=== PATIENT | female | born 1935 | race Caucasian/White ===

== ENCOUNTER 2017-12-23 07:10 | Day surgery (SDC) | payer MEDICARE, OTHER ==
[~2017-12-23 07:10] MED LIST: Acetaminophen TAB* 325 MG PO PRN; Buffered Lidocaine 0.9% SYRIN* 5 ML/SYR SYRINGE INTRADERM ONE
[2017-12-23] MEDS ORDERED: acetaZOLAMIDE TAB* 250 MG ONE (09:08)
[2017-12-23] MEDS ORDERED: Ketorolac 0.5% OPHTH (NF) 0.5 % 5 ML BTL ONE (09:08)
[2017-12-23] MEDS ORDERED: Lidocaine 1% MPF* 2 ML VIAL ONE (09:08)
[2017-12-23] MEDS ORDERED: Proparacaine 0.5% OPHTH.SOL* 15 ML BTL ONE (09:08)
[2017-12-23] MEDS ORDERED: Povidone Iodine 5% OPTH* 30 ML BTL ONE (09:08)
[2017-12-23] MEDS ORDERED: Cyclopentolate 1% OPTH.SOL* 2 ML BTL ONE (09:08)
[2017-12-23] MEDS ORDERED: Neomycin/Polymy/Dex OPTH.SUSP* MAXITROL 0.1% 5 ML ONE (09:08)
[2017-12-23] MEDS ORDERED: Lidocaine 2% EPI 1:200000 MPF*10-20 ML VIAL ONE (09:08)
[2017-12-23] MEDS ORDERED: Phenylephrine 2.5% OPTH.SOL* 2 ML BTL ONE (09:08)
[2017-12-23] MEDS ORDERED: Midazolam* 1 MG/ML 2 ML VIAL (2 MG) ONE (09:26)
[2017-12-23] MEDS ORDERED: fentaNYL* 50 MCG/ML 2 ML VIAL (100 MCG VIAL) ONE (10:00)
[2017-12-23 11:10] VITALS: BP 120/52
--- NOTE | 2017-12-23 22:11 | OP ---
DATE OF OPERATION: 12/23/17 - [facility] DATE OF : 35 SURGEON: Joe Hanks M.D. PREOPERATIVE DIAGNOSIS: Cataract, right eye. POSTOPERATIVE DIAGNOSIS: Cataract, right eye. OPERATIVE PROCEDURE: Extracapsular cataract extraction with intraocular lens implant intraocular lens implant right eye. DESCRIPTION OF PROCEDURE: The patient was brought to the operating room after being given 1/2% Alcaine with epinephrine drops in the preoperative area. The eye was prepped and draped in the usual sterile fashion. Sterile drape and eyelid speculum were placed. Again, topical 1/2% Alcaine with epinephrine was given. A paracentesis incision was made at the 9 o'clock position with the No.75 blade. Clear cornea incision 2.2 x 2.2-mm was created at the 12 o'clock position starting at the anterior limbus using the 2.2-mm keratome. The anterior chamber was irrigated with 0.4 mL of 1% non-preservative intracameral lidocaine and filled with DisCoVisc. A capsulorrhexis was completed using the cystotome and the Utrata forceps. Hydrodissection was performed with balanced salt solution. The lens nucleus was removed with the Phacoemulsification handpiece without incident. Cortex was removed with the irrigation-aspiration handpiece. The capsular bag was re-inflated using DisCoVisc and an [id number] 19.5 Implant was inserted with the shooter. The irrigation-aspiration handpiece was used to remove all residual DisCoVisc. The eye was refilled with balanced salt solution and the wound checked and found to be watertight. Topical Maxitrol drops were given. [id number]/[facility] #: [id number] [facility]
== END 2017-12-23 10:32 | disposition home or self-care (01) ==
LOC: OREAST 07:10
PROVIDERS: ATTEND Specialist
DX: H25.811 Combined forms of age-related cataract, right eye (principal); Z86.711 Personal history of pulmonary embolism; Z79.01 Long term (current) use of anticoagulants; J44.9 Chronic obstructive pulmonary disease, unspecified; J30.2 Other seasonal allergic rhinitis; I10 Essential (primary) hypertension; E78.5 Hyperlipidemia, unspecified; R01.1 Cardiac murmur, unspecified; I69.398 Other sequelae of cerebral infarction
CPT/HCPCS: A9270-GY; J2250; J3010; V2632

== ENCOUNTER 2018-01-13 07:46 | Day surgery (SDC) | payer MEDICARE, OTHER ==
[2018-01-13] MEDS ORDERED: Phenylephrine 2.5% OPTH.SOL* 2 ML BTL ONE (08:03)
[2018-01-13] MEDS ORDERED: Cyclopentolate 1% OPTH.SOL* 2 ML BTL ONE (08:03)
[2018-01-13] MEDS ORDERED: Lidocaine 2% EPI 1:200000 MPF*10-20 ML VIAL ONE (08:03)
[2018-01-13] MEDS ORDERED: Ketorolac 0.5% OPHTH (NF) 0.5 % 5 ML BTL ONE (08:03)
[2018-01-13] MEDS ORDERED: acetaZOLAMIDE TAB* 250 MG ONE (08:03)
[2018-01-13] MEDS ORDERED: Neomycin/Polymy/Dex OPTH.SUSP* MAXITROL 0.1% 5 ML ONE (08:03)
[2018-01-13] MEDS ORDERED: Povidone Iodine 5% OPTH* 30 ML BTL ONE (08:03)
[2018-01-13] MEDS ORDERED: Lidocaine 1%* 5 ML VIAL ONE (08:03)
[2018-01-13] MEDS ORDERED: Proparacaine 0.5% OPHTH.SOL* 15 ML BTL ONE (08:03)
[2018-01-13] MEDS ORDERED: Midazolam* 1 MG/ML 2 ML VIAL (2 MG) ONE (10:46)
[2018-01-13 11:24] VITALS: BP 128/58
--- NOTE | 2018-01-14 08:27 | OP ---
DATE OF OPERATION: 01/13/18 - [facility] DATE OF : 35 SURGEON: Joe Hanks M.D. PREOPERATIVE DIAGNOSIS: Cataract, left eye. POSTOPERATIVE DIAGNOSIS: Cataract, left eye. OPERATIVE PROCEDURE: Extracapsular cataract extraction with intraocular lens implant, left eye. DESCRIPTION OF PROCEDURE: The patient was brought to the operating room after being given 1/2% Alcaine with epinephrine drops in the preoperative area. The eye was prepped and draped in the usual sterile fashion. Sterile drape and eyelid speculum were placed. Again, topical 1/2% Alcaine with epinephrine was given. A paracentesis incision was made at the 3 o'clock position with the No.75 blade. Clear cornea incision 2.2 x 2.2-mm was created at the 6 o'clock position starting at the anterior limbus using the 2.2-mm keratome. The anterior chamber was irrigated with 0.4 mL of 1% non-preservative intracameral lidocaine and filled with DisCoVisc. A capsulorrhexis was completed using the cystotome and the Utrata forceps. Hydrodissection was performed with balanced salt solution. The lens nucleus was removed with the Phacoemulsification handpiece without incident. Cortex was removed with the irrigation-aspiration handpiece. The capsular bag was re-inflated using DisCoVisc and an [id number] implant was inserted with the shooter. The irrigation-aspiration handpiece was used to remove all residual DisCoVisc. The eye was refilled with balanced salt solution and the wound checked and found to be watertight. Topical Maxitrol drops were given. [id number]/[facility] #: [id number] [facility]
== END 2018-01-13 11:39 | disposition home or self-care (01) ==
LOC: OREAST 07:46
PROVIDERS: ATTEND Specialist
DX: H25.812 Combined forms of age-related cataract, left eye (principal); E03.9 Hypothyroidism, unspecified; Z79.01 Long term (current) use of anticoagulants; I10 Essential (primary) hypertension; E78.2 Mixed hyperlipidemia; Z86.711 Personal history of pulmonary embolism; J44.9 Chronic obstructive pulmonary disease, unspecified; K21.9 Gastro-esophageal reflux disease without esophagitis
CPT/HCPCS: A9270-GY; J2250; V2632

== ENCOUNTER 2019-06-08 07:57 | Emergency (ER) | payer MEDICARE, OTHER ==
[2019-06-08] MEDS ORDERED: methylPREDNISolone 125 MG* 2 ML VIAL IV ONE (08:06)
[2019-06-08] MEDS ORDERED: Albuterol 2.5 MG/3 ML NEB.SOL* (0.083%) INH ONE (08:07)
--- NOTE | 2019-06-08 08:14 | ED ---
Respiratory - HPI Summary HPI Summary: Pt is an 83 y/o F presenting to the ED brought in by EMS for a respiratory complaint. Per EMS, the pt has had a scratchy throat for the past week or so, and woke up this morning with increased difficulty breathing. She has hx of COPD , and was given a Duoneb in the ambulance that helped some of the phlegm come up. Pt reports a chest cold for the past week or so, characterized by a productive cough with white/yellow phlegm. She woke up this morning shaking and short of breath. She denies fever, pain, vomiting, diarrhea, or nasal discharge. 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 - History of Current Complaint Chief Complaint: EDShortnessOfBreath Stated Complaint: DIFFICULTY BREATHING PER EMS Time Seen by Provider: 06/08/19 07:58 Hx Obtained From: Patient, EMS Onset/Duration: Gradual Onset, Lasting Days, Still Present Timing: Constant Initial Severity: Moderate Pain Intensity: 0 Character: Wheezing, Cough (Productive), Dyspnea at Rest Sputum Amount: Scant Sputum Color: White, Yellow Aggravating Factor(s): Nothing Alleviating Factor(s): Nothing Associated Signs and Symptoms: SOB, Chills - Allergy/Home Medications Allergies/Adverse Reactions: Allergies Allergy/AdvReac Type Severity Reaction Status Date / Time amoxicillin Allergy Severe Difficulty Verified 01/13/18 08:26 Breathing/Wheezing beclomethasone [From Qvar] Allergy Severe breathing Verified 01/13/18 08:26 problems budesonide [From Symbicort] Allergy Severe tight Verified 01/13/18 08:26 chest, difficulty breathing calcium Allergy Severe kidney Verified 01/13/18 08:26 stones clarithromycin [From Biaxin] Allergy Severe tachy HR, Verified 01/13/18 08:26 chest felt "full" clavulanic acid Allergy Severe Difficulty Verified 01/13/18 08:26 [From Augmentin] Breathing/Wheezing doxycycline Allergy Severe Difficulty Verified 01/13/18 08:26 Breathing/Wheezing erythromycin base Allergy Severe tachy HR, Verified 01/13/18 08:26 chest felt "full" esomeprazole [From Nexium] Allergy Severe legs Verified 01/13/18 08:26 swell, sores in mouth fluticasone furoate Allergy Severe lips/tongue Verified 01/13/18 08:26 [From Breo Ellipta] swelling fluvastatin [From Lescol] Allergy Severe lips/tongue Verified 01/13/18 08:26 swelling formoterol [From Symbicort] Allergy Severe tight Verified 01/13/18 08:26 chest, difficulty breathing ipratropium Allergy Severe Difficulty Verified 01/13/18 08:26 Breathing levofloxacin Allergy Severe Difficulty Verified 01/13/18 08:26 Breathing/Wheezing levothyroxine Allergy Severe chest Verified 01/13/18 08:26 tight , insomia metoprolol Allergy Severe breathing Verified 01/13/18 08:26 problems mometasone furoate Allergy Severe body aches Verified 01/13/18 08:26 [From Asmanex Twisthaler] montelukast [From Singulair] Allergy Severe lips/tongue Verified 01/13/18 08:26 swelling mupirocin Allergy Severe breathing Verified 01/13/18 08:26 problems niacin Allergy Severe red all Verified 01/13/18 08:26 over body, felt like on "fire" olodaterol Allergy Severe swelling Verified 01/13/18 08:26 [From Stiolto Respimat] lips and tongue spironolactone Allergy Severe swelling Verified 01/13/18 08:26 lips/tongue, throat felt "full" sucralfate Allergy Severe difficulty Verified 01/13/18 08:26 breathing, dry mouth, nausea sulfamethoxazole Allergy Severe tachy HR, Verified 01/13/18 08:26 [From Bactrim] chest felt "full" tiotropium Allergy Severe swelling Verified 01/13/18 08:26 [From Stiolto Respimat] lips and tongue trimethoprim [From Bactrim] Allergy Severe tachy HR, Verified 01/13/18 08:26 chest felt "full" umeclidinium Allergy Severe increased Verified 01/13/18 08:26 [From Incruse Ellipta] coughing, tight chest vilanterol Allergy Severe lips/tongue Verified 01/13/18 08:26 [From Breo Ellipta] swelling atorvastatin [From Lipitor] Allergy Intermediate Muscle Ache Verified 01/13/18 08:26 blinepanide Allergy Severe dizzy, Uncoded 01/13/18 08:26 sick to stomach PMH/Surg Hx/FS Hx/Imm Hx Previously Healthy: Yes Endocrine/Hematology History: Reports: Hx Thyroid Disease Cardiovascular History: Reports: Hx Hypertension - controlled with meds, Hx Rheumatic Fever - as a child, Hx Valvular Heart Disease, Other Cardiovascular Problems/Disorders - leaking heart valve Respiratory History: Reports: Hx Chronic Obstructive Pulmonary Disease (COPD), Hx Pulmonary Embolism - x2, 2004, Hx Sleep Apnea GI History: Reports: Hx Gastroesophageal Reflux Disease, Hx Hiatal Hernia History: Reports: Hx Kidney Stones, Other Problems/Disorders - nephrolithiasis Musculoskeletal History: Reports: Hx Arthritis - osteoporosis, Hx Bursitis - shoulders r Sensory History: Reports: Hx Cataracts - both, Hx Contacts or Glasses - glasses Denies: Hx Hearing Aid Opthamlomology History: Reports: Hx Cataracts - both, Hx Contacts or Glasses - glasses Psychiatric History: Reports: Hx Anxiety - Cancer History Hx Chemotherapy: No - Surgical History Surgery Procedure, Year, and Place: cholcystectomy. hysterectomy- took out ovaries. left total knee replacement [facility] 2009. left breast biopsy. tonsillectomy Hx Anesthesia Reactions: No Infectious Disease History: No Infectious Disease History: Denies: Traveled Outside the [place] in Last 30 Days - Family History Known Family History: Negative: Diabetes - Social History Alcohol Use: Occasionally Hx Substance Use: No Substance Use Type: Reports: None Hx Tobacco Use: No Smoking Status (MU): Never Smoked Tobacco Review of Systems Negative: Fever Negative: Nasal Discharge Positive: Shortness Of Breath, Cough Negative: Vomiting, Diarrhea, Nausea Negative: Myalgia All Other Systems Reviewed And Are Negative: Yes Physical Exam - Summary Physical Exam Summary: Constitutional: Well-developed, Well-nourished, Alert. (-) Distressed Skin: Warm, Dry HENT: Normocephalic; Atraumatic Eyes: Conjunctiva normal Neck: Musculoskeletal ROM normal neck. (-) JVD, (-) Stridor, (-) Tracheal deviation Cardio: Rhythm regular, rate normal, Heart sounds normal; Intact distal pulses; Radial pulses are 2+ and symmetric. (-) Murmur Pulmonary/Chest wall: Effort normal. Bilateral expiratory wheezing. (-) Respiratory distress, (-) Rales Abd: Soft, (-) tenderness, (-) Distension, (-) Guarding, (-) Rebound Musculoskeletal: (-) Edema Lymph: (-) Cervical adenopathy Neuro: Alert, Oriented x3 Psych: Mood and affect Normal Triage Information Reviewed: Yes Vital Signs On Initial Exam: Initial Vitals Temp Pulse Resp BP Pulse Ox 98.7 F 87 18 117/72 95 06/08/19 08:02 06/08/19 08:02 06/08/19 08:02 06/08/19 08:02 06/08/19 08:02 Vital Signs Reviewed: Yes Procedures - Sedation Patient Received Moderate/Deep Sedation with Procedure: No Diagnostics - Vital Signs Vital Signs Temp Pulse Resp BP Pulse Ox 06/08/19 08:02 98.7 F 87 18 117/72 95 - Laboratory Result Diagrams: 06/08/19 08:14 06/08/19 08:14 Lab Statement: Any lab studies that have been ordered have been reviewed, and results considered in the medical decision making process. - Radiology CXR Radiology Interpretation Completed By: Radiologist Summary of Radiographic Findings: HYPERINFLATION, CONSISTENT WITH COPD. NO ACTIVE CARDIOPULMONARY DISEASE. ED physician has reviewed this report. - EKG 0926 Cardiac Rate: NL - 86bpm EKG Rhythm: Sinus Rhythm ST Segment: Normal Ectopy: None Summary of EKG Findings: EKG at 0926 shows NSR at 86bpm with no STEMI. ED physician has reviewed and interpreted this report. Disposition - Course Course Of Treatment: Patient is here with a mild COPD exacerbation. Patient had wheezing upon arrival but was talking in full sentences and was not in respiratory distress. Patient is given an albuterol treatment with improvement in her symptoms. Patient was offered a second one but declined. Patient given steroids. Patient had blood performed which was grossly unremarkable. A chest pressure which showed no acute abnormality. Patient states he discharged on azithromycin but pharmacist called stating she was brought to macrolides and was switched to doxycycline which she's had in 2018 with no adverse reaction. Patient is also discharged with prednisone. Patient is also discharged with instructions to follow-up with her PCP to ask about her 3 albuterol prescriptions and no daily inhaler. - Diagnoses Provider Diagnoses: COPD exacerbation Discharge ED - Sign-Out/Discharge Documenting (check all that apply): Patient Departure - Discharge Plan Condition: Stable Disposition: HOME Patient Education Materials: COPD (Chronic Obstructive Pulmonary Disease) (ED) Referrals: Juan Salvador MD [Primary Care Provider] - Additional Instructions: Please follow up with your primary care provider within the next 1-3 days to ask about your three different Albuterol medications, and to discuss the possibility of a daily inhaler. Return to the emergency department with any new or worsening symptoms, including worsening shortness of breath, fever, or chills. - Billing Disposition and Condition Condition: STABLE Disposition: Home - Attestation Statements Document Initiated by Stefani: Yes Documenting Scribe: Cheryl Brown Provider For Whom Stefani is Documenting (Include Credential): Brent Rdz MD. Scribe Attestation: Cheryl Perez, scribed for Brent Rdz MD. on 06/08/19 at 1204. Scribe Documentation Reviewed: Yes Provider Attestation: The documentation as recorded by the Cheryl mosher accurately reflects the service I personally performed and the decisions made by , Brent Rdz MD. Status of Scribe Document: Viewed
[2019-06-08 08:22] LABS: ABS Basophils 0.1 10^3/ul (0-0.2); ABS Eosinophils 0.1 10^3/ul (0-0.6); ABS Lymphocytes 1.4 10^3/ul (1.0-4.8); ABS Monocytes 0.5 10^3/ul (0-0.8); ABS Neutrophils 2.8 10^3/ul (1.5-7.7); Eosinophil % 1.9 %; Hematocrit 43 % (35-47); Hemoglobin 14.3 g/dL (12.0-16.0); Mean Corpuscular HGB Conc 33 g/dL (31-36); Mean Corpuscular Hemoglobin 29 pg (27-31); Mean Corpuscular Volume 87 fL (80-97); Nucleated Red Blood Cells % 0.2; Platelet Count 260 10^3/uL (150-450); Red Blood Count 4.95 10^6 /uL (3.70-4.87); Red Cell Distribution Width 14 % (10-15); White Blood Count 4.9 10^3/uL (3.5-10.8)
[2019-06-08 08:35] LABS: INR 2.89 (0.82-1.09)
[2019-06-08 08:40] LABS: Albumin 3.8 g/dL (3.2-5.2); Albumin/Globulin Ratio 1.2 (1-3); BUN/Creatinine Ratio 19.1 (8-20); Calcium 9.2 mg/dL (8.6-10.3); EGFR African American 73.3 (>60); EGFR Non-African American 60.6 (>60); Globulin 3.1 g/dL (2-4); Potassium 3.5 mmol/L (3.5-5.0); Total Bilirubin 0.9 mg/dL (0.2-1.0); Total Protein 6.9 g/dL (6.4-8.9)
[2019-06-08 08:42] LABS: Troponin I 0.01 ng/mL (<0.04)
--- OUTSIDE RECORDS SUMMARY | 2019-06-08 08:51 | XMS REPORT | Continuity of Care Document ---
:1935 Author Organization [facility] Care Team Providers Name Role Phone MIK HENNESSY Primary Care Physician Allergies and Intolerances Code Code Allergy Type Reaction Severity Start End Status System Substance Date Date RXNorm Budesonide Drug allergy breat Moderate Active (disorder) 65056 RXNorm Levofloxacin Drug allergy chest Moderate Active (disorder) 1808 RXNorm Bumetanide Propensity to Dizziness Moderate Active adverse reactions to drug (disorder) 905629 RXNorm DuoNeb Drug allergy breathing Moderate Active (disorder) probems 640355 RXNorm Singulair Drug allergy lips swelling Moderate Active (disorder) 6401772 RXNorm Aerospan Drug allergy chest Moderate Active (disorder) tightness, shakes 6181221 RXNorm Stiolto Respimat Drug allergy lips & tongue Moderate Active (disorder) swelling 57833 RXNorm Sucralfate Drug allergy Difficulty Moderate Active (disorder) breathing 6918 RXNorm Metoprolol Drug allergy swelling, Moderate 09/13/ Active (disorder) breathing 1936 problems 7393 RXNorm Niacin Drug body on fire Moderate 09/13/ Active intolerence 1935 (disorder) 798919 RXNorm Lipitor Propensity to muscle achy Moderate 09/13/ Active adverse 1936 reactions to drug (disorder) 307909 RXNorm Nexium Drug allergy swelling, Moderate 09/13/ Active (disorder) sore mouth 1936 1895 RXNorm Calcium Propensity to develops Moderate 09/13/ Active adverse kidney stones 1936 reactions to drug (disorder) 3640 RXNorm Doxycycline Propensity to vomiting Moderate 09/13/ Active adverse 1936 reactions to drug (disorder) 896171 RXNorm Levaquin Propensity to cant sleep & Unknown 09/13/ Active adverse diarrhea 1936 reactions to drug (disorder) 3118337 RXNorm Breo Ellipta Drug allergy swelling, Moderate 09/13/ Active (disorder) breathing 1936 problems 20290502 RXNorm Lopid Drug allergy breathing Moderate 09/13/ Active (disorder) problems 193196387 RXNorm Pulmicort Propensity to gas & Mild 09/13/ Active Flexhaler adverse diarrhea 1936 reactions to drug (disorder) 1348 RXNorm Qvar Drug allergy breathing Moderate 09/13/ Active (disorder) problems 1936 24577 RXNorm Simvastatin Drug allergy breathing Unknown 09/13/ Active (disorder) problems 193 320292 RXNorm Symbicort Propensity to nervous & Mild 09/13/ Active adverse insomnia 1936 reactions to drug (disorder) 986410 RXNorm Zetia Drug allergy breathing Moderate 09/13/ Active (disorder) problems 1936 28220 RXNorm Mupirocin Drug allergy breathing Moderate 09/13/ Active (disorder) problems 193 95071 RXNorm Atorvastatin Drug allergy breathing Moderate 09/13/ Active (disorder) problems 1936 723 RXNorm Amoxicillin Drug allergy sob, n/v Moderate 09/13/ Active (disorder) 193 664309 RXNorm Augmentin Drug allergy unknown Moderate 09/13/ Active (disorder) 1936 9997 RXNorm Spironolactone Drug allergy angioedema Severe 09/13/ Active (disorder) 1936 215040 RXNorm Asmanex Propensity to muscle aches Mild 09/13/ Active Twisthaler adverse 1936 reactions to drug (disorder) 7213 RXNorm Ipratropium Drug allergy angioedema Severe 09/13/ Active (disorder) 1936 4053 RXNorm Erythromycin Propensity to palpitations Moderate 03/05/ Active Base adverse 2010 reactions to drug (disorder) 295784 RXNorm Bactrim Drug allergy SHORTNESS OF Moderate 03/05/ Active (disorder) BREATH 2009729 RXNorm Biaxin Drug allergy SHORTNESS OF Moderate 03/05/ Active (disorder) BREATH 2009 Medications RxNorm Medication Dose Route Instructions Start End Status Date Date 642431 200 ACTUAT 1 puff inhalation inhaled every 4 Active Levalbuterol 0.045 hours as needed. MG/ACTUAT Metered Dose Inhaler 161 Acetaminophen 500 mg oral orally every 4 Active hours as needed. 435 Albuterol 2 puff inhalation inhaled every 6 Active hours as needed. 435 Albuterol 2.5 mg inhalation inhaled 4 times Active per day as needed. 300633 Amlodipine 10 MG 10 mg oral orally daily Active Oral Tablet 1191 Aspirin 81 mg oral orally daily Active (HOLD UNTIL FOLLOW UP WITH PRIMARY CARE PHYSICIAN DUE TO CONCURRENT USE OF COUMADIN AND RECENT GI BLEED) 2418 Cholecalciferol 2000 unit oral orally every day Active 4603 Furosemide 60 mg oral orally daily Active 31764 levothyroxine 88 mcg oral orally daily Active Lorazepam 0.5 MG 0.5 mg oral orally 2 times Active Oral Tablet per day as needed. (for anxiety and sleep,mdd 2) 816345 Losartan Potassium 100 mg oral orally daily Active 100 MG Oral Tablet 067675 Nystatin 100 UNT/MG 1 applic topical topically 2 Active Topical Powder times per day Midnight-3 Fatty Acids 1000 mg oral orally every day Active 7646 Omeprazole 20 mg oral orally daily Active 19800829 Potassium Chloride 20 mEq oral orally 2 times Active 20 MEQ Extended per day Release Oral Tablet 975843 Rosuvastatin 5 mg oral orally daily Active calcium 5 MG Oral Tablet 644127 Warfarin Sodium 2.5 2.5 mg oral orally 3 times Active MG Oral Tablet per week (Thu, , Thu, Thu, and Thu) 916629 Warfarin Sodium 5 5 mg oral orally 2 times Active MG Oral Tablet per week (Thu and ) Medications At Time Of Discharge RxNorm Medication Dose Route Instructions Start End Status Date Date 542915 200 ACTUAT 1 puff inhalation inhaled every 4 Active Levalbuterol 0.045 hours as needed. MG/ACTUAT Metered Dose Inhaler 161 Acetaminophen 500 mg oral orally every 4 Active hours as needed. 435 Albuterol 2 puff inhalation inhaled every 6 Active hours as needed. 435 Albuterol 2.5 mg inhalation inhaled 4 times Active per day as needed. 069450 Amlodipine 10 MG 10 mg oral orally daily Active Oral Tablet 1191 Aspirin 81 mg oral orally daily Active (HOLD UNTIL FOLLOW UP WITH PRIMARY CARE PHYSICIAN DUE TO CONCURRENT USE OF COUMADIN AND RECENT GI BLEED) 2418 Cholecalciferol 2000 unit oral orally every day Active 4603 Furosemide 60 mg oral orally daily Active 58158 levothyroxine 88 mcg oral orally daily Active Lorazepam 0.5 MG 0.5 mg oral orally 2 times Active Oral Tablet per day as needed. (for anxiety and sleep,mdd 2) 680312 Losartan Potassium 100 mg oral orally daily Active 100 MG Oral Tablet 207858 Nystatin 100 UNT/MG 1 applic topical topically 2 Active Topical Powder times per day Midnight-3 Fatty Acids 1000 mg oral orally every day Active 7646 Omeprazole 20 mg oral orally daily Active 795732 Potassium Chloride 20 mEq oral orally 2 times Active 20 MEQ Extended per day Release Oral Tablet 541119 Rosuvastatin 5 mg oral orally daily Active calcium 5 MG Oral Tablet 697842 Warfarin Sodium 2.5 2.5 mg oral orally 3 times Active MG Oral Tablet per week (Sun, Tu, Wed, Thu, and Thu) 056660 Warfarin Sodium 5 5 mg oral orally 2 times Active MG Oral Tablet per week (Thu and ) Problems Code Code System Problem Name Start Date End Date Status 641061035 SNOMED-CT Acute posthemorrhagic anemia 10/2018 Active 457342243 SNOMED-CT Cerebrovascular accident 02/19/2014 U Active 13386745 SNOMED-CT Abdominal discomfort 06/06/2013 U Active 128916185 SNOMED-CT Cerebrovascular accident 10/21/2012 Active 14319538 SNOMED-CT Pulmonary embolism 2009 Active 483048720 SNOMED-CT Diverticulitis U Active 97488068 SNOMED-CT Chronic obstructive lung disease U Active 902828456 SNOMED-CT Asthma U Active 54382552 SNOMED-CT Pulmonary emphysema U Active 303562067 SNOMED-CT Backache U Active 34983889 SNOMED-CT Hypokalemia U U Active 72445283 SNOMED-CT Chronic obstructive lung disease U U Active 25745558 SNOMED-CT Pulmonary embolism U U Active 67335513 SNOMED-CT Hyperlipidemia U U Active 07371573 SNOMED-CT Hypertensive disorder U U Active 495653670 SNOMED-CT Gastroesophageal reflux disease U Active 52708108 SNOMED-CT Hiatal hernia U Active 68914822 SNOMED-CT Intervertebral disc prolapse U Active Procedures Code Code System Procedure Date 517999060 SNOMED CT Tonsillectomy U 139070428 SNOMED CT Hysterectomy 01/[address] Biopsy of breast U 20458591 SNOMED CT Cholecystectomy U 03009319 SNOMED CT Revision of total knee arthroplasty, all components 2009 Results No data in the system Social History Code Code System Social History Observation Description Dates Observed 344961236 SNOMED CT Current Smoking Status Never smoker UNK AdministrativeGender Sex Assigned At Unknown Vital Signs Code Code System Vitals Value Date 8310-5 LOINC Body Temperature 97.7 [degF] 05/22/2019 8865-8 LOINC Pulse Rate 60 {beats}/min 05/22/2019 9279-1 LOINC Respiratory Rate 20 /min 05/22/2019 27179-1 LOINC O2% BldC Oximetry 95 % 05/22/2019 8480-6 LOINC BP Systolic 143 mm[Hg] 05/22/2019 8462-4 LOINC BP Diastolic 70 mm[Hg] 05/22/2019 8302-2 LOINC Height 60 [in_i] 05/22/2019 89286-2 LOINC Weight 75 kg 05/22/2019 3140-1 LOINC Body surface area Derived from formula 1.72 m2 05/22/2019 60148-4 LOINC BMI (Body Mass Index) 32.4 kg/m2 05/22/2019 Goals Section No data in the system Health Concerns [facility] Diagnosis Date Code Code System Diagnosis Status B35.6 ICD10 DE[facility]INI CONTI Active Advance Directives *RHIO - CONSENT IS YES Directive Type Effective Date 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 Supporting Document Name Address Phone No Directive Type 12/16/2015 2:45:54 Not Specified Not Specified Not Specified None No specified [facility] Directive Type Effective Date 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 Supporting Document Name Address Phone No Directive 11/01/2018 Not Not Not hanna Snell Yes Type 6:00:00 AM Specified Specified Specified [phone] specified Encounters Encounter Diagnosis Location Date [facility] 05/22/2019 Family History Relationship: Father () Health Problem Age At Onset Notes [place] (Myocardial infarction) (Myocardial infarction) Relationship: Mother ( ) Health Problem Age At Onset Notes MO (Myocardial infarction) (Myocardial infarction) Relationship: Sister ( ) Health Problem Age At Onset Notes Diverticulitis Functional Status No data in the system Immunizations Vaccine Code Code System Vaccine Name Date Status 109 CVX pneumococcal vaccine, NOS 02/22/2008 Completed 109 CVX pneumococcal vaccine, NOS 05/16/2015 Completed 112 CVX tetanus toxoid, NOS 02/06/2004 Completed Medical Equipment Implants Implanted Date Implant Site ABHISHEK 08/24/2009 total knee arthroplasty left knee Mental Status No data in the system Assessment and Plan Assessments No data in the systemPlan Of Treatment No data in the systemPending Tests No data in the system Hospital Discharge Instructions No data in the system Reason for Visit Reason for Visit Rash
--- OUTSIDE RECORDS SUMMARY | 2019-06-08 08:51 | XMS REPORT | Continuity of Care Document ---
:1935 Author Organization [facility] Care Team Providers Name Role Phone XUAN POSADAS Admitting Physician XUAN POSADAS Attending Physician MIK HENNESSY Primary Care Physician Allergies and Intolerances Code Code Allergy Type Reaction Severity Start End Status System Substance Date Date RXNorm Budesonide Drug allergy breat Moderate Active (disorder) 81345 RXNorm Levofloxacin Drug allergy chest Moderate Active (disorder) 1808 RXNorm Bumetanide Propensity to Dizziness Moderate Active adverse reactions to drug (disorder) 812082 RXNorm DuoNeb Drug allergy breathing Moderate Active (disorder) probems 093779 RXNorm Singulair Drug allergy lips swelling Moderate Active (disorder) 0855865 RXNorm Aerospan Drug allergy chest Moderate Active (disorder) tightness, shakes 8647024 RXNorm Stiolto Respimat Drug allergy lips & tongue Moderate Active (disorder) swelling 82765 RXNorm Sucralfate Drug allergy Difficulty Moderate Active (disorder) breathing 6918 RXNorm Metoprolol Drug allergy swelling, Moderate 09/13/ Active (disorder) breathing 1936 problems 7393 RXNorm Niacin Drug body on fire Moderate 09/13/ Active intolerence 1935 (disorder) 958474 RXNorm Lipitor Propensity to muscle achy Moderate 09/13/ Active adverse 1936 reactions to drug (disorder) 442053 RXNorm Nexium Drug allergy swelling, Moderate 09/13/ Active (disorder) sore mouth 1935 189 RXNorm Calcium Propensity to develops Moderate 09/13/ Active adverse kidney stones 1936 reactions to drug (disorder) 3640 RXNorm Doxycycline Propensity to vomiting Moderate 09/13/ Active adverse 1936 reactions to drug (disorder) 451220 RXNorm Levaquin Propensity to cant sleep & Unknown 09/13/ Active adverse diarrhea 1936 reactions to drug (disorder) 9305386 RXNorm Breo Ellipta Drug allergy swelling, Moderate 09/13/ Active (disorder) breathing 1936 problems 979040 RXNorm Lopid Drug allergy breathing Moderate 09/13/ Active (disorder) problems [id number] RXNorm Pulmicort Propensity to gas & Mild 09/13/ Active Flexhaler adverse diarrhea 1936 reactions to drug (disorder) 1348 RXNorm Qvar Drug allergy breathing Moderate 09/13/ Active (disorder) problems 193 77774 RXNorm Simvastatin Drug allergy breathing Unknown 09/13/ Active (disorder) problems 193 902369 RXNorm Symbicort Propensity to nervous & Mild 09/13/ Active adverse insomnia 1936 reactions to drug (disorder) 645454 RXNorm Zetia Drug allergy breathing Moderate 09/13/ Active (disorder) problems 193 39089 RXNorm Mupirocin Drug allergy breathing Moderate 09/13/ Active (disorder) problems 193 68850 RXNorm Atorvastatin Drug allergy breathing Moderate 09/13/ Active (disorder) problems 193 723 RXNorm Amoxicillin Drug allergy sob, n/v Moderate 09/13/ Active (disorder) 193 215373 RXNorm Augmentin Drug allergy unknown Moderate 09/13/ Active (disorder) 193 9997 RXNorm Spironolactone Drug allergy angioedema Severe 09/13/ Active (disorder) 193 927212 RXNorm Asmanex Propensity to muscle aches Mild 09/13/ Active Twisthaler adverse 1936 reactions to drug (disorder) 7213 RXNorm Ipratropium Drug allergy angioedema Severe 09/13/ Active (disorder) 193 4053 RXNorm Erythromycin Propensity to palpitations Moderate 03/05/ Active Base adverse 2010 reactions to drug (disorder) 413007 RXNorm Bactrim Drug allergy SHORTNESS OF Moderate 03/05/ Active (disorder) BREATH 2009729 RXNorm Biaxin Drug allergy SHORTNESS OF Moderate 03/05/ Active (disorder) BREATH 2009 Medications RxNorm Medication Dose Route Instructions Start End Status Date Date 808512 200 ACTUAT 1 puff inhalation inhaled every 4 Active Levalbuterol 0.045 hours as MG/ACTUAT Metered needed. Dose Inhaler 161 Acetaminophen 500 mg oral orally every 4 Active hours as needed. 435 Albuterol 2 puff inhalation inhaled every 6 Active hours as needed. 435 Albuterol 2.5 mg inhalation inhaled 4 times Active per day as needed. 114069 Amlodipine 10 MG 10 mg oral orally daily Active Oral Tablet 1191 Aspirin 81 mg oral orally daily Active (HOLD UNTIL FOLLOW UP WITH PRIMARY CARE PHYSICIAN DUE TO CONCURRENT USE OF COUMADIN AND RECENT GI BLEED) 2418 Cholecalciferol 2000 unit oral orally every Active day 4603 Furosemide 60 mg oral orally daily Active 08848 levothyroxine 88 mcg oral orally daily Active Lorazepam 0.5 MG 0.5 mg oral orally 2 times Active Oral Tablet per day as needed. (for anxiety and sleep,mdd 2) 389347 Losartan Potassium 100 mg oral orally daily Active 100 MG Oral Tablet 547744 Nystatin 100 1 applic topical topically 2 Active UNT/MG Topical times per day Powder Ashton-3 Fatty 1000 mg oral orally every Active day 46 Omeprazole 20 mg oral orally daily Active 19800829 Potassium Chloride 20 mEq oral orally 2 times Active 20 MEQ Extended per day Release Oral Tablet 294083 Rosuvastatin 5 mg oral orally daily Active calcium 5 MG Oral Tablet 203273 Warfarin Sodium 2.5 mg oral orally 3 times Active 2.5 MG Oral Tablet per week (Sun, Tu, Wed, Fri, and Thu) 808131 Warfarin Sodium 5 5 mg oral orally 2 times Active MG Oral Tablet per week (Thu and ) 3626589 Fluticasone 2 spray intranasal intranasally Completed propionate 0.05 daily MG/ACTUAT Metered (administer Dose Nasal [place] into each nostril) Medications At Time Of Discharge RxNorm Medication Dose Route Instructions Start End Status Date Date 946073 200 ACTUAT 1 puff inhalation inhaled every 4 Active Levalbuterol 0.045 hours as needed. MG/ACTUAT Metered Dose Inhaler 161 Acetaminophen 500 mg oral orally every 4 Active hours as needed. 435 Albuterol 2 puff inhalation inhaled every 6 Active hours as needed. 435 Albuterol 2.5 mg inhalation inhaled 4 times Active per day as needed. 449876 Amlodipine 10 MG 10 mg oral orally daily Active Oral Tablet 1191 Aspirin 81 mg oral orally daily Active (HOLD UNTIL FOLLOW UP WITH PRIMARY CARE PHYSICIAN DUE TO CONCURRENT USE OF COUMADIN AND RECENT GI BLEED) 2418 Cholecalciferol 2000 unit oral orally every day Active 460 Furosemide 60 mg oral orally daily Active 35842 levothyroxine 88 mcg oral orally daily Active Lorazepam 0.5 MG 0.5 mg oral orally 2 times Active Oral Tablet per day as needed. (for anxiety and sleep,mdd 2) 011201 Losartan Potassium 100 mg oral orally daily Active 100 MG Oral Tablet 503565 Nystatin 100 UNT/MG 1 applic topical topically 2 Active Topical Powder times per day Ashton-3 Fatty Acids 1000 mg oral orally every day Active 7646 Omeprazole 20 mg oral orally daily Active 19800829 Potassium Chloride 20 mEq oral orally 2 times Active 20 MEQ Extended per day Release Oral Tablet 921239 Rosuvastatin 5 mg oral orally daily Active calcium 5 MG Oral Tablet 792461 Warfarin Sodium 2.5 2.5 mg oral orally 3 times Active MG Oral Tablet per week (Sun, , Thu, Thu, and Thu) 704098 Warfarin Sodium 5 5 mg oral orally 2 times Active MG Oral Tablet per week (Thu and ) Problems Code Code System Problem Name Start Date End Date Status 414441980 SNOMED-CT Acute posthemorrhagic anemia 10/2018 Active 344109094 SNOMED-CT Cerebrovascular accident 02/19/2014 U Active 34765930 SNOMED-CT Abdominal discomfort 06/06/2013 U Active 086334808 SNOMED-CT Cerebrovascular accident 10/21/2012 Active 81877601 SNOMED-CT Pulmonary embolism 2009 Active 155363377 SNOMED-CT Diverticulitis U Active 54939613 SNOMED-CT Chronic obstructive lung disease U Active 820073086 SNOMED-CT Asthma U Active 29094429 SNOMED-CT Pulmonary emphysema U Active 358811996 SNOMED-CT Backache U Active 70144634 SNOMED-CT Hypokalemia U U Active 48013898 SNOMED-CT Chronic obstructive lung disease U U Active 86279526 SNOMED-CT Pulmonary embolism U U Active 40232582 SNOMED-CT Hyperlipidemia U U Active 79489017 SNOMED-CT Hypertensive disorder U U Active 518388953 SNOMED-CT Gastroesophageal reflux disease U Active 21018433 SNOMED-CT Hiatal hernia U Active 01347009 SNOMED-CT Intervertebral disc prolapse U Active Procedures Code Code System Procedure Date 608937258 SNOMED CT Tonsillectomy U 003066448 SNOMED CT Hysterectomy 01/[address] Biopsy of breast U 29968494 SNOMED CT Cholecystectomy U 62278503 SNOMED CT Revision of total knee arthroplasty, all components 2009 Results Radiology Results Order: CHEST TWO VIEWSExam Completion Date: 04/19/2019 10:4704/19/2019 11:30 AM CHEST X-RAYS CLINICAL INFORMATION: SOB, right CP, hx COPD, on wafarin -- SHORTNESS OF BREATH COMPARISON: 2018. PROCEDURE: Frontal and lateral projections of thechest were obtained. FINDINGS: Pulmonary hyperinflation similar to previous. No mass, nodule or infiltrate. The cardiovascular silhouette is normal. 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 No pleural effusion or adenopathy. END OF IMPRESSION [facility] submits Radiology results to [facility] and [facility] then provides those same results to [facility]. All results are available to [facility] and [facility] provider portal users. [facility] DICOM images are available to the [facility] provider portalusers only. [facility] DICOM images are not available to the [facility] provider portal users. There is no current [facility] cross-[facility] functionality allowing images to be available through the [facility] connectivity. Interpreted By: Alvin Murillo Electronically signed By: Lauren Acuña M.D. Read By: LAUREN ACUÑA Date: 04/19/2019 11:51 Social History Code Code System Social History Observation Description Dates Observed 070345871 SNOMED CT Current Smoking Status Never smoker UNK AdministrativeGender Sex Assigned At Unknown Vital Signs Code Code System Vitals Value Date 8865-8 LOINC Pulse Rate 78 {beats}/min 04/19/2019 9279-1 LOINC Respiratory Rate 18 /min 04/19/2019 09330-6 INC O2% BldC Oximetry 95 % 04/19/2019 8480-6 LOINC BP Systolic 139 mm[Hg] 04/19/2019 8462-4 LOINC BP Diastolic 60 mm[Hg] 04/19/2019 8310-5 LOINC Body Temperature 98.4 [degF] 04/19/2019 8302-2 LOINC Height 55 [in_i] 04/19/2019 87949-4 LOINC Weight 70.9 kg 04/19/2019 3140-1 LOINC Body surface area Derived from formula 1.58 m2 04/19/2019 20334-2 [place] BMI (Body Mass Index) 36.6 kg/m2 04/19/2019 Goals Section No data in the system Health Concerns No data in the systemEncounter Diagnosis Date Code Code System Diagnosis Status F41.9 ICD10 ANXIETY DISORDER UNSPECIFIED Active Advance Directives *RHIO - CONSENT IS YES 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 Supporting Document Name Address Phone No Directive Type 12/16/2015 2:45:54 Not Specified Not Specified Not Specified None No specified [facility] [employer] 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 Supporting Document Name Address Phone No Directive 11/01/2018 Not Not Not hanna Snell Yes Type 6:00:00 AM Specified Specified Specified [phone] specified Encounters Encounter Diagnosis Location Date ANXIETY DISORDER UNSPECIFIED [facility] 04/19/2019 Family History Relationship: Father () Health Problem Age At Onset Notes AL (Myocardial infarction) (Myocardial infarction) Relationship: Mother ( ) Health Problem Age At Onset Notes AL (Myocardial infarction) (Myocardial infarction) Relationship: Sister ( ) Health Problem Age At Onset Notes Diverticulitis Functional Status Code Functional Condition Code System Date Status Independent adls SNOMED CT 04/19/2019 Active Appears well nourished/hydrated SNOMED CT 04/19/2019 Active Immunizations Vaccine Code Code System Vaccine Name Date Status 109 CVX pneumococcal vaccine, NOS 02/22/2008 Completed 109 CVX pneumococcal vaccine, NOS 05/16/2015 Completed 112 CVX tetanus toxoid, NOS 02/06/2004 Completed Medical Equipment Implants Implanted Date Implant Site [id number] 08/24/2009 total knee arthroplasty left knee Mental Status Code Cognitive Condition Code System Date Status Oriented x [address] 04/19/[address] 04/19/[address] 04/19/2019 Active Assessment and Plan Assessments No data in the systemPlan Of Treatment No data in the systemPending Tests No data in the system Hospital Discharge Instructions No data in the system Reason for Visit Reason for Visit Chest Pain
--- OUTSIDE RECORDS SUMMARY | 2019-06-08 08:51 | XMS REPORT | Continuity of Care Document ---
:1935 Author Organization [facility] Care Team Providers Name Role Phone LOLLY KHAN Admitting Physician LOLLY KHAN Attending Physician MIK HENNESSY Primary Care Physician Allergies and Intolerances Code Code Allergy Type Reaction Severity Start End Status System Substance Date Date RXNorm Budesonide Drug allergy breat Moderate Active (disorder) 48298 RXNorm Levofloxacin Drug allergy chest Moderate Active (disorder) 1808 RXNorm Bumetanide Propensity to Dizziness Moderate Active adverse reactions to drug (disorder) 211712 RXNorm DuoNeb Drug allergy breathing Moderate Active (disorder) probems 769490 RXNorm Singulair Drug allergy lips swelling Moderate Active (disorder) 3610829 RXNorm Aerospan Drug allergy chest Moderate Active (disorder) tightness, shakes 3209815 RXNorm Stiolto Respimat Drug allergy lips & tongue Moderate Active (disorder) swelling 64005 RXNorm Sucralfate Drug allergy Difficulty Moderate Active (disorder) breathing 6918 RXNorm Metoprolol Drug allergy swelling, Moderate 09/13/ Active (disorder) breathing 1936 problems 7393 RXNorm Niacin Drug body on fire Moderate 09/13/ Active intolerence 1935 (disorder) 697409 RXNorm Lipitor Propensity to muscle achy Moderate 09/13/ Active adverse 1936 reactions to drug (disorder) 121066 RXNorm Nexium Drug allergy swelling, Moderate 09/13/ Active (disorder) sore mouth 1935 189 RXNorm Calcium Propensity to develops Moderate 09/13/ Active adverse kidney stones 193 reactions to drug (disorder) 3640 RXNorm Doxycycline Propensity to vomiting Moderate 09/13/ Active adverse 1936 reactions to drug (disorder) 088179 RXNorm Levaquin Propensity to cant sleep & Unknown 09/13/ Active adverse diarrhea 1936 reactions to drug (disorder) 4172827 RXNorm Breo Ellipta Drug allergy swelling, Moderate 09/13/ Active (disorder) breathing 1936 problems 20290502 RXNorm Lopid Drug allergy breathing Moderate 09/13/ Active (disorder) problems [id number] RXNorm Pulmicort Propensity to gas & Mild 09/13/ Active Flexhaler adverse diarrhea 1936 reactions to drug (disorder) 1348 RXNorm Qvar Drug allergy breathing Moderate 09/13/ Active (disorder) problems 193 48875 RXNorm Simvastatin Drug allergy breathing Unknown 09/13/ Active (disorder) problems 193 097816 RXNorm Symbicort Propensity to nervous & Mild 09/13/ Active adverse insomnia 1936 reactions to drug (disorder) 079699 RXNorm Zetia Drug allergy breathing Moderate 09/13/ Active (disorder) problems 193 14667 RXNorm Mupirocin Drug allergy breathing Moderate 09/13/ Active (disorder) problems 193 73480 RXNorm Atorvastatin Drug allergy breathing Moderate 09/13/ Active (disorder) problems 193 723 RXNorm Amoxicillin Drug allergy sob, n/v Moderate 09/13/ Active (disorder) 193 670175 RXNorm Augmentin Drug allergy unknown Moderate 09/13/ Active (disorder) 193 9997 RXNorm Spironolactone Drug allergy angioedema Severe 09/13/ Active (disorder) 193 633766 RXNorm Asmanex Propensity to muscle aches Mild 09/13/ Active Twisthaler adverse 1936 reactions to drug (disorder) 7213 RXNorm Ipratropium Drug allergy angioedema Severe 09/13/ Active (disorder) 193 4053 RXNorm Erythromycin Propensity to palpitations Moderate 03/05/ Active Base adverse 2010 reactions to drug (disorder) 975086 RXNorm Bactrim Drug allergy SHORTNESS OF Moderate 03/05/ Active (disorder) BREATH 2009729 RXNorm Biaxin Drug allergy SHORTNESS OF Moderate 03/05/ Active (disorder) BREATH 2009 Medications RxNorm Medication Dose Route Instructions Start End Status Date Date 902312 200 ACTUAT 1 puff inhalation inhaled every 4 Active Levalbuterol 0.045 hours as needed. MG/ACTUAT Metered Dose Inhaler 161 Acetaminophen 500 mg oral orally every 4 Active hours as needed. 435 Albuterol 2 puff inhalation inhaled every 6 Active hours as needed. 435 Albuterol 2.5 mg inhalation inhaled 4 times Active per day as needed. 202998 Amlodipine 10 MG 10 mg oral orally daily Active Oral Tablet 1191 Aspirin 81 mg oral orally daily Active (HOLD UNTIL FOLLOW UP WITH PRIMARY CARE PHYSICIAN DUE TO CONCURRENT USE OF COUMADIN AND RECENT GI BLEED) 2418 Cholecalciferol 2000 unit oral orally every day Active 4603 Furosemide 60 mg oral orally daily Active 55707 levothyroxine 88 mcg oral orally daily Active Lorazepam 0.5 MG 0.5 mg oral orally 2 times Active Oral Tablet per day as needed. (for anxiety and sleep,mdd 2) 844390 Losartan Potassium 100 mg oral orally daily Active 100 MG Oral Tablet 471899 Nystatin 100 UNT/MG 1 applic topical topically 2 Active Topical Powder times per day Corinth-3 Fatty Acids 1000 mg oral orally every day Active 7646 Omeprazole 20 mg oral orally daily Active 19800829 Potassium Chloride 20 mEq oral orally 2 times Active 20 MEQ Extended per day Release Oral Tablet 295680 Rosuvastatin 5 mg oral orally daily Active calcium 5 MG Oral Tablet 020803 Warfarin Sodium 2.5 2.5 mg oral orally 3 times Active MG Oral Tablet per week (Sun, Tu, Wed, Thu, and Thu) 819254 Warfarin Sodium 5 5 mg oral orally 2 times Active MG Oral Tablet per week (Thu and ) Medications At Time Of Discharge RxNorm Medication Dose Route Instructions Start End Status Date Date 424964 200 ACTUAT 1 puff inhalation inhaled every 4 Active Levalbuterol 0.045 hours as needed. MG/ACTUAT Metered Dose Inhaler 161 Acetaminophen 500 mg oral orally every 4 Active hours as needed. 435 Albuterol 2 puff inhalation inhaled every 6 Active hours as needed. 435 Albuterol 2.5 mg inhalation inhaled 4 times Active per day as needed. 332850 Amlodipine 10 MG 10 mg oral orally daily Active Oral Tablet 1191 Aspirin 81 mg oral orally daily Active (HOLD UNTIL FOLLOW UP WITH PRIMARY CARE PHYSICIAN DUE TO CONCURRENT USE OF COUMADIN AND RECENT GI BLEED) 2418 Cholecalciferol 2000 unit oral orally every day Active 4603 Furosemide 60 mg oral orally daily Active 59342 levothyroxine 88 mcg oral orally daily Active Lorazepam 0.5 MG 0.5 mg oral orally 2 times Active Oral Tablet per day as needed. (for anxiety and sleep,mdd 2) 195407 Losartan Potassium 100 mg oral orally daily Active 100 MG Oral Tablet 941065 Nystatin 100 UNT/MG 1 applic topical topically 2 Active Topical Powder times per day Corinth-3 Fatty Acids 1000 mg oral orally every day Active 7646 Omeprazole 20 mg oral orally daily Active 699510 Potassium Chloride 20 mEq oral orally 2 times Active 20 MEQ Extended per day Release Oral Tablet 475025 Rosuvastatin 5 mg oral orally daily Active calcium 5 MG Oral Tablet 772534 Warfarin Sodium 2.5 2.5 mg oral orally 3 times Active MG Oral Tablet per week (Thu, , Thu, Thu, and Thu) 991121 Warfarin Sodium 5 5 mg oral orally 2 times Active MG Oral Tablet per week (Thu and ) Problems Code Code System Problem Name Start Date End Date Status 754875764 SNOMED-CT Acute posthemorrhagic anemia 10/2018 Active 058009059 SNOMED-CT Cerebrovascular accident 02/19/2014 U Active 38405715 SNOMED-CT Abdominal discomfort 06/06/2013 U Active 583478204 SNOMED-CT Cerebrovascular accident 10/21/2012 Active 62178793 SNOMED-CT Pulmonary embolism 2009 Active 284128418 SNOMED-CT Diverticulitis U Active 13740933 SNOMED-CT Chronic obstructive lung disease U Active 290411109 SNOMED-CT Asthma U Active 49402520 SNOMED-CT Pulmonary emphysema U Active 428509619 SNOMED-CT Backache U Active 77253912 SNOMED-CT Hypokalemia U U Active 14189200 SNOMED-CT Chronic obstructive lung disease U U Active 72302151 SNOMED-CT Pulmonary embolism U U Active 52145371 SNOMED-CT Hyperlipidemia U U Active 63957136 SNOMED-CT Hypertensive disorder U U Active 436565890 SNOMED-CT Gastroesophageal reflux disease U Active 28236461 SNOMED-CT Hiatal hernia U Active 92638095 SNOMED-CT Intervertebral disc prolapse U Active Procedures Code Code System Procedure Date 919983597 SNOMED CT Tonsillectomy U 290143018 SNOMED CT Hysterectomy 01/[address] Biopsy of breast U 77901642 SNOMED CT Cholecystectomy U 50713678 SNOMED CT Revision of total knee arthroplasty, all components 2009 Results Laboratory Results Order: B-TYPE NATRIURETIC PEPTID Specimen Source: Body Site: Legend: (G,H) = High, (GG,HH,CH,#H) = Above High Threshold, ( #,L) = Low, (##,CL,#L,LL) = Below Low Threshold, (C,CC,CA,#A,A) = Abnormal LOINC Test Result Flag Range Units Date 35578-5 1BNP SerPl-mCnc 65 0-100 pg/mL 03/12/2019 05:52 Performing Lab Footnotes:[facility] - [id number] - [address] [place] [address] BRISEYDA SARGENTOMRola Order: CBC DIFF Specimen Source: Body Site: Legend: (G,H) = High, (GG, HH,CH,#H) = Above High Threshold, (#,L) = Low, (##,CL,#L,LL) = Below Low Threshold, (C,CC,CA,#A,A) = Abnormal LOINC Test Result Flag Range Units Date 6690-2 1WBC # Bld Auto 6.2 4.8-10.8 K/uL 03/12/2019 05:52 79508-4 1RBC # Bld 4.84 4.20-5.40 M/uL 03/12/2019 05:52 718-7 1Hgb Bld-mCnc 13.7 12.0-16.0 gm/dL 03/12/2019 05:52 4544-3 1Hct VFr Bld Auto 42.7 36.0-48.0 % 03/12/2019 05:52 787-2 1MCV RBC Auto 88.2 80.0-100.0 fL 03/12/2019 05:52 64161-0 1MCHC RBC-mCnc 32.1 30.0-36.5 % 03/12/2019 05:52 81173-7 1MCH RBC Qn 28.3 27.0-34.0 pg 03/12/2019 05:52 27856-9 1RDW RBC 13.7 11.0-15.0 % 03/12/2019 05:52 777-3 1Platelet # Bld Auto 297 130-450 K/uL 03/12/2019 05:52 69173-6 1PMV Bld Auto 6.3 6.0-12.0 fL 03/12/2019 05:52 751-8 1Neutrophils # Bld Auto 64 37-80 % 03/12/2019 05:52 48257-9 1Lymphocytes NFr Bld 22 10-50 % 03/12/2019 05:52 5905-5 1Monocytes NFr Bld Auto 12 0-12 % 03/12/2019 05:52 51656-1 1Eosinophil # Bld 2 <=8 % 03/12/2019 05:52 704-7 1Basophils # Bld Auto 0 <=3 % 03/12/2019 05:52 03884-1 1Neutrophils # Bld 3.9 1.8-8.6 K/uL 03/12/2019 05:52 731-0 1Lymphocytes # Bld Auto 1.4 0.5-5.0 K/uL 03/12/2019 05:52 742-7 1Monocytes # Bld Auto 0.8 0.0-1.3 K/uL 03/12/2019 05:52 08214-9 1Eosinophil # Bld 0.1 0.0-0.9 K/uL 03/12/2019 05:52 704-7 1Basophils # Bld Auto 0.0 0.0-0.3 K/ul 03/12/2019 05:52 Performing Lab Footnotes:[facility] - [id number] - [address] [place] [address] BRISEYDA HANSON Order: CK Specimen Source: Body Site: Legend: (G,H) = High, (GG,HH,CH,# H) = Above High Threshold, (#,L) = Low, (##,CL,#L,LL) = Below Low Threshold, (C, CC,CA,#A,A) = Abnormal LOINC Test Result Flag Range Units Date 7-6 1CK SerPl-cCnc 97 21-215 U/L 03/12/2019 05:52 Performing Lab Footnotes:[facility] - [id number] - [address] [place] [address] BRISEYDA SARGENTOMD1 Order: COMPREHENSIVE PANEL Specimen Source: Body Site: Legend: (G,H) = High, (GG,HH,CH,#H) = Above High Threshold, (#,L) = Low, (##,CL,#L,LL) = Below Low Threshold, (C,CC,CA,#A,A) = Abnormal LOINC Test Result Flag Range Units Date 2951-2 1Sodium SerPl-sCnc 139 136-145 mmol/L 03/12/2019 05:52 2823-3 1Potassium SerPl-sCnc 3.6 3.5-5.2 mmol/L 03/12/2019 05:52 2075-0 1Chloride SerPl-sCnc 106 100-108 mmol/L 03/12/2019 05:52 8-9 1CO2 SerPl-sCnc 25 21-32 mmol/L 03/12/2019 05:52 2345-7 1Glucose SerPl-mCnc 93 70-100 mg/dL 03/12/2019 05:52 3094-0 1BUN SerPl-mCnc 16 7-21 mg/dL 03/12/2019 05:52 2160-0 1Creat SerPl-mCnc 0.8 0.6-1.3 mg/dL 03/12/2019 05:52 Interpretive Orbyn: 1Normal Kidney Function or Mild Disease - GFR >OR= 60 Chronic Kidney Disease - GFR 15-59 Renal Failure - GFR < 15 GFR not calculated on patients under 18 years of age. Calculated (estimated) GFR is based on the MDRD Study equation, which assumes a steady state for creatinine. Estimated GFR may not be appropriate for medication dosing. 69620-2 1Ca-I SerPl-mCnc 9.4 8.5-10.8 mg/dL 03/12/2019 05:52 45918-8 1GFR/BSA.pred SerPl-ArVRat >60 03/12/2019 05:52 37824-0 1Bilirub Bld-mCnc 1.0 0.0-1.2 mg/dL 03/12/2019 05:52 2885-2 1Prot SerPl-mCnc 7.0 6.4-8.2 gm/dL 03/12/2019 05:52 1751-7 1Albumin SerPl-mCnc 3.8 3.2-4.6 gm/dL 03/12/2019 05:52 6768-6 1ALP SerPl-cCnc 89 40-150 U/L 03/12/2019 05:52 1742-6 1ALT SerPl-cCnc 14 0-55 U/L 03/12/2019 05:52 1920-8 1AST SerPl-cCnc 19 5-37 U/L 03/12/2019 05:52 Performing Lab Footnotes:[facility] - [id number] - [address] [place] [address] BRISEYDA HANSON Order: PT/INR Specimen Source: Body Site: Legend: (G,H) = High, (GG,HH, CH,#H) = Above High Threshold, (#,L) = Low, (##,CL,#L,LL) = Below Low Threshold , (C,CC,CA,#A,A) = Abnormal LOINC Test Result Flag Range Units Date 5902-2 1PT Time PPP 29.5 H 9.4-12.4 sec 03/12/2019 05:52 6301-6 1INR PPP 2.6 03/12/2019 05:52 Interpretive Robyn: 1 INR INTERPERTATION 2.0-3.0 THERAPEUTIC MONITORING 2.5-3.5 HEART VALVE REPLACEMENT Performing Lab Footnotes:[facility] - [id number] - [address] [place] [address] BRISEYDA HANSON Order: TROPONIN I Specimen Source: Body Site: Legend: (G,H) = High, (GG ,HH,CH,#H) = Above High Threshold, (#,L) = Low, (##,CL,#L,LL) = Below Low Threshold, (C,CC,CA,#A,A) = Abnormal LOINC Test Result Flag Range Units Date 78766-0 1Troponin I SerPl-mCnc 0.02 0.00-0.04 ng/mL 03/12/2019 05:52 Interpretive Robyn: 1 TROPONIN INTERPRETATION 0.00 - 0.04 ng/ml Normal 0.05 - 0.29 ng/ml Villegas Zone, Uncertain for AMI Greater than 0.30 ng/ml Suggestive of AMI Performing Lab Footnotes:[facility] - [id number] - [address] [place] [address] BRISEYDA HANSON Radiology Results Order: CHEST PORTABLE-SINGLEExam Completion Date:03/12/2019 05: 5:58 AM CHEST X-RAY CLINICAL INFORMATION: -- SHORTNESS OF BREATH COMPARISON: Chest radiograph from 11/30/2018 PROCEDURE: A single frontal projection of the chest was obtained. FINDINGS: Tubes and Catheters: None. Central Airways: Normal. Lungs: Hyperexpanded lungs. No focal airspace opacity. Pleura/Pleural space: Stable blunting of the bilateral costophrenic angles. No pleural fluid. No pneumothorax. Heart and Mediastinum: Stable appearance of the cardiomediastinal silhouette. Additional Findings: No acute or aggressive osseous changes noted. Advanced degenerative changes of the right shoulder. IMPRESSION: No acute cardiopulmonary disease. Underlyingemphysema. END OF IMPRESSION I have personally reviewed the images and the Resident's/Fellow 'sinterpretation and agree with or edited the findings. [facility] submits Radiologyresults to [facility] and [facility] then provides those same results to [facility]. All results are available to [facility] and [facility] provider portal users. [facility] DICOM images are available to the [facility] provider portal users only. [facility] DICOM images are not available to the [facility] provider portal users.There is no current [facility] functionality allowing images to be available through the [facility] connectivity. Interpreted By: Viry Hebert D.O. Electronically signed By: Sally Beltran M.D. Read By: SALLY CABRALES Date: 2018 13:03 Social History Code Code System Social History Description Dates Observed Observation 432230258 SNOMED CT Current Smoking Unknown if ever Status smoked UNK AdministrativeGender Sex Assigned At Unknown Vital Signs Code Code System Vitals Value Date 8310-5 LOINC Body Temperature 98.6 [degF] 03/12/2019 8865-8 LOINC Pulse Rate 68 {beats}/min 03/12/2019 9279-1 LOINC Respiratory Rate 16 /min 03/12/2019 83876-4 LOINC O2% BldC Oximetry 96 % 03/12/2019 8480-6 LOINC BP Systolic 145 mm[Hg] 03/12/2019 8462-4 LOINC BP Diastolic 69 mm[Hg] 03/12/2019 8302-2 LOINC Height 54 [in_i] 03/12/2019 80592-7 LOINC Weight 70 kg 03/12/2019 3140-1 LOINC Body surface area Derived from formula 1.55 m2 03/12/2019 63451-2 LOINC BMI (Body Mass Index) 37.2 kg/m2 03/12/2019 Goals Section No data in the system Health Concerns No data in the systemGe[facility] Hospital[facility] Diagnosis Date Code Code System Diagnosis Status R06.02 ICD10 SHORTNESS OF BREATH Active Advance Directives *RHIO - CONSENT IS YES Directive Type Effective Date 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 Supporting Document Name Address Phone No Directive Type 12/16/2015 2:45:54 Not Specified Not Specified Not Specified None No specified [facility] Directive Type Effective Date 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 Supporting Document Name Address Phone No Directive 11/01/2018 Not Not Not hanna Snell Yes Type 6:00:00 AM Specified Specified Specified [phone] specified Encounters Encounter Diagnosis Location Date SHORTNESS OF BREATH [facility] 03/12/2019 Family History Relationship: Father () Health Problem Age At Onset Notes [place] (My[place] infarction) (Myocardial infarction) Relationship: Mother ( ) Health Problem Age At Onset Notes [place] (Myocardial infarction) (Myocardial infarction) Relationship: Sister ( ) Health Problem Age At Onset Notes Diverticulitis Functional Status Code Functional Condition Code System Date Status Independent adls SNOMED CT 03/12/2019 Active Appears well nourished/hydrated SNOMED CT 03/12/2019 Active Immunizations Vaccine Code Code System Vaccine Name Date Status 109 CVX pneumococcal vaccine, NOS 02/22/2008 Completed 109 CVX pneumococcal vaccine, NOS 05/16/2015 Completed 112 CVX tetanus toxoid, NOS 02/06/2004 Completed Medical Equipment Implants Implanted Date Implant Site [id number] 08/24/2009 total knee arthroplasty left knee Mental Status Code Cognitive Condition Code System Date Status Oriented x [address] 03/12/2019 Active Mild distress SNOMED CT 03/12/[address] 03/12/2019 Active Assessment and Plan Assessments No data in the systemPlan Of Treatment No data in the systemPending Tests No data in the system Hospital Discharge Instructions No data in the system Reason for Visit Reason for Visit Difficulty Breathing
--- OUTSIDE RECORDS SUMMARY | 2019-06-08 08:52 | XMS REPORT | Continuity of Care Document ---
:1935 External Reference #:[id number] Author Name Joe Batista M.D. Address [address] [facility] [address] [place] [address] Care Team Providers Name Role Phone [place] LOPEZ, Juan Benavides - Internal Care Team Information Cyber O[employer] Planner [phone] Medicine Problems Active Problems Provider Date Eustachian tube disorder Joe Batista M.D. Onset: 05/08/2015 Peptic reflux disease Joe Batista M.D. Onset: 05/27/2016 Social History Type Date Description Comments Sex Unknown Tobacco Use Start: Unknown Never Smoked Cigarettes Tobacco Use Start: Unknown Never Smoked Cigars Tobacco Use Start: Unknown Never Smoked A Pipe Smokeless Tobacco Never Used Smokeless Tobacco ETOH Use Currently occasionally consumes alcohol Tobacco Use Start: Unknown Patient has never smoked Smoking Status Reviewed: 04/10/19 Patient has never smoked Allergies, Adverse Reactions, Alerts Active Allergies Reaction Severity Comments Date Biaxin 03/15/2007 Bactrim 03/15/2007 Erythromycin 03/15/2007 Darvocet 03/15/2007 Lescol 03/15/2007 Niaspan 03/15/2007 Calcium too much makes kidney stones 01/24/2009 Lipitor made my joints and muscles ache 01/24/2009 Metoprolol 05/27/2016 Niacin 05/27/2016 Nexium 05/27/2016 Mupirocin 05/27/2016 Amoxicillin 05/27/2016 Augmentin 05/27/2016 Doxycycline 05/27/2016 Zetia simv 05/27/2016 Simvastatin 05/27/2016 Atorvastatin 05/27/2016 Symbicort (US) 05/27/2016 Asmanex 05/27/2016 Pulmicort Flexhaler 05/27/2016 Singulair 05/27/2016 Spironolactone 05/27/2016 Breo Ellipta 07/21/2017 Qsymia 07/21/2017 Budesonide 07/21/2017 Levofloxacin 07/21/2017 Medications Active Medications SIG Qnty Indications Ordering Date Provider Flonase Allergy Relief as needed Unknown 50mcg/Act Suspension Albuterol Sulfate [place] LOPEZ, Juan Benavides (2.5mg/3ML) 0.083% Nebulizer Warfarin Sodium Unknown 5mg Tablets Clotrimazole/Betamethas Apply To Affected Unknown one Dipropionate Area S Two Times 1-0.05% A Day as Needed Cream Famotidine [place] LOPEZ, 40mg Tablets Juan Benavides Nitrostat 1 tab sublingual [place] LOPEZ, 0.4mg Tablets Sub every 5 mins x 3 Juan Benavides as needed for chest pain Acetylcysteine use every 12 hours [place] LOPEZ, 10% Solution Juan Benavides Levalbuterol HCL [place] LOPEZ, 1.25mg/3ML Juan Benavides Nebulizer Nasonex 2 sprays [place] LOPEZ, 50mcg/Act intranasal daily Juan Benavides Suspension Vitamin D 1 by mouth every [place] LOPEZ, 2000Units Tablets day Juan Benavides Synthroid 1 by mouth every [place] LOPEZ, 88mcg Tablets day on an empty Juan Benavides stomach Furosemide 1 by mouth every [place] LOPEZ, 40mg Tablets day Juan Benavides [place]-3 Fish Oil take as directed [place] LOPEZ, 1000mg Juan Benavides Capsules Benadryl as needed for [place] LOPEZ, 25mg Capsules allergies Juan Benavides Crestor 1 by mouth every [place] LOPEZ, 5mg Tablets day Juan Benavides Tylenol Extra Strength 2 by mouth every [place] LOPEZ, day as needed Juan Benavides 500mg Tablets Klor-Con M10 2 by mouth every [place] LOPEZ, 10Meq Tablets in the morning 2 Juan Benavides ER tabs pm Losartan Potassium 1 by mouth every [place] LOPEZ, 100mg day Juan Benavides Tablets Amlodipine 1 by mouth every [place] LOPEZ, 5mg Tablets day Juan Benavides Immunizations Description No Information Available Vital Signs Date Vital Result Comment 04/11/2019 2:09pm Weight 160.00 lb Weight 72.576 kg Height 59 inches 4'11" Height in cm's 149.9 cm BMI (Body Mass Index) 32.3 kg/m2 07/06/2018 9:46am Weight 161.00 lb Weight 73.030 kg Height 59 inches 4'11" Height in cm's 149.9 cm BMI (Body Mass Index) 32.5 kg/m2 Results Description No Information Available Procedures Date Code Description Status 04/11/2019 89962 Fiberoptic Laryngoscopy Completed Medical Devices Description No Information Available Encounters Description No Information Available Assessments Date Code Description Provider 04/11/2019 R49.0 Dysphonia Joe Batista M.D. Plan of Treatment 04/11/2019 - Joe Batista M.D.R49.0 DysphoniaComments:The patient sees pulmonology for her COPD that she got from second hand smoke. She was in to see her Oriental Rug Stretcher who had her seen another ENT and she was told her throat is not closing up properly. I have had her see speech therapy for her swallowing ad she continues with those modifications and now is not having any swallowing problems. Her nasolaryngoscopy is normal without any masses or lesions. Her vocal cords are moving normally. I have no concerns today. Functional Status Description No Information Available Mental Status Description No Information Available Referrals Description No Information Available
--- OUTSIDE RECORDS SUMMARY | 2019-06-08 08:52 | XMS REPORT | Continuity of Care Document ---
:1935 Author Organization [facility] Care Team Providers Name Role Phone MIK HENNESSY Primary Care Physician Allergies and Intolerances Code Code Allergy Type Reaction Severity Start End Status System Substance Date Date RXNorm Budesonide Drug allergy breat Moderate Active (disorder) 98666 RXNorm Levofloxacin Drug allergy chest Moderate Active (disorder) 1808 RXNorm Bumetanide Propensity to Dizziness Moderate Active adverse reactions to drug (disorder) 046985 RXNorm DuoNeb Drug allergy breathing Moderate Active (disorder) probems 787418 RXNorm Singulair Drug allergy lips swelling Moderate Active (disorder) 9452996 RXNorm Aerospan Drug allergy chest Moderate Active (disorder) tightness, shakes 0121577 RXNorm Stiolto Respimat Drug allergy lips & tongue Moderate Active (disorder) swelling 74435 RXNorm Sucralfate Drug allergy Difficulty Moderate Active (disorder) breathing 6918 RXNorm Metoprolol Drug allergy swelling, Moderate 09/13/ Active (disorder) breathing 1936 problems 7393 RXNorm Niacin Drug body on fire Moderate 09/13/ Active intolerence 1935 (disorder) 530273 RXNorm Lipitor Propensity to muscle achy Moderate 09/13/ Active adverse 1936 reactions to drug (disorder) 797516 RXNorm Nexium Drug allergy swelling, Moderate 09/13/ Active (disorder) sore mouth 1936 1895 RXNorm Calcium Propensity to develops Moderate 09/13/ Active adverse kidney stones 1936 reactions to drug (disorder) 3640 RXNorm Doxycycline Propensity to vomiting Moderate 09/13/ Active adverse 1936 reactions to drug (disorder) 677083 RXNorm Levaquin Propensity to cant sleep & Unknown 09/13/ Active adverse diarrhea 1936 reactions to drug (disorder) 0768977 RXNorm Breo Ellipta Drug allergy swelling, Moderate 09/13/ Active (disorder) breathing 1936 problems 20290502 RXNorm Lopid Drug allergy breathing Moderate 09/13/ Active (disorder) problems 193196387 RXNorm Pulmicort Propensity to gas & Mild 09/13/ Active Flexhaler adverse diarrhea 1936 reactions to drug (disorder) 1348 RXNorm Qvar Drug allergy breathing Moderate 09/13/ Active (disorder) problems 1936 12673 RXNorm Simvastatin Drug allergy breathing Unknown 09/13/ Active (disorder) problems 193 237737 RXNorm Symbicort Propensity to nervous & Mild 09/13/ Active adverse insomnia 1936 reactions to drug (disorder) 081937 RXNorm Zetia Drug allergy breathing Moderate 09/13/ Active (disorder) problems 1936 83673 RXNorm Mupirocin Drug allergy breathing Moderate 09/13/ Active (disorder) problems 193 10637 RXNorm Atorvastatin Drug allergy breathing Moderate 09/13/ Active (disorder) problems 1936 723 RXNorm Amoxicillin Drug allergy sob, n/v Moderate 09/13/ Active (disorder) 193 768450 RXNorm Augmentin Drug allergy unknown Moderate 09/13/ Active (disorder) 1936 9997 RXNorm Spironolactone Drug allergy angioedema Severe 09/13/ Active (disorder) 1936 399874 RXNorm Asmanex Propensity to muscle aches Mild 09/13/ Active Twisthaler adverse 1936 reactions to drug (disorder) 7213 RXNorm Ipratropium Drug allergy angioedema Severe 09/13/ Active (disorder) 1936 4053 RXNorm Erythromycin Propensity to palpitations Moderate 03/05/ Active Base adverse 2010 reactions to drug (disorder) 798363 RXNorm Bactrim Drug allergy SHORTNESS OF Moderate 03/05/ Active (disorder) BREATH 2009729 RXNorm Biaxin Drug allergy SHORTNESS OF Moderate 03/05/ Active (disorder) BREATH 2009 Medications RxNorm Medication Dose Route Instructions Start End Status Date Date 848531 200 ACTUAT 1 puff inhalation inhaled every 4 Active Levalbuterol 0.045 hours as needed. MG/ACTUAT Metered Dose Inhaler 161 Acetaminophen 500 mg oral orally every 4 Active hours as needed. 435 Albuterol 2 puff inhalation inhaled every 6 Active hours as needed. 435 Albuterol 2.5 mg inhalation inhaled 4 times Active per day as needed. 789684 Amlodipine 10 MG 10 mg oral orally daily Active Oral Tablet 1191 Aspirin 81 mg oral orally daily Active (HOLD UNTIL FOLLOW UP WITH PRIMARY CARE PHYSICIAN DUE TO CONCURRENT USE OF COUMADIN AND RECENT GI BLEED) 2418 Cholecalciferol 2000 unit oral orally every day Active 4603 Furosemide 60 mg oral orally daily Active 47325 levothyroxine 88 mcg oral orally daily Active Lorazepam 0.5 MG 0.5 mg oral orally 2 times Active Oral Tablet per day as needed. (for anxiety and sleep,mdd 2) 106467 Losartan Potassium 100 mg oral orally daily Active 100 MG Oral Tablet 963687 Nystatin 100 UNT/MG 1 applic topical topically 2 Active Topical Powder times per day Enterprise-3 Fatty Acids 1000 mg oral orally every day Active 7646 Omeprazole 20 mg oral orally daily Active 19800829 Potassium Chloride 20 mEq oral orally 2 times Active 20 MEQ Extended per day Release Oral Tablet 247317 Rosuvastatin 5 mg oral orally daily Active calcium 5 MG Oral Tablet 596700 Warfarin Sodium 2.5 2.5 mg oral orally 3 times Active MG Oral Tablet per week (Thu, , Thu, Thu, and Thu) 577321 Warfarin Sodium 5 5 mg oral orally 2 times Active MG Oral Tablet per week (Thu and ) Medications At Time Of Discharge RxNorm Medication Dose Route Instructions Start End Status Date Date 825782 200 ACTUAT 1 puff inhalation inhaled every 4 Active Levalbuterol 0.045 hours as needed. MG/ACTUAT Metered Dose Inhaler 161 Acetaminophen 500 mg oral orally every 4 Active hours as needed. 435 Albuterol 2 puff inhalation inhaled every 6 Active hours as needed. 435 Albuterol 2.5 mg inhalation inhaled 4 times Active per day as needed. 684643 Amlodipine 10 MG 10 mg oral orally daily Active Oral Tablet 1191 Aspirin 81 mg oral orally daily Active (HOLD UNTIL FOLLOW UP WITH PRIMARY CARE PHYSICIAN DUE TO CONCURRENT USE OF COUMADIN AND RECENT GI BLEED) 2418 Cholecalciferol 2000 unit oral orally every day Active 4603 Furosemide 60 mg oral orally daily Active 73021 levothyroxine 88 mcg oral orally daily Active Lorazepam 0.5 MG 0.5 mg oral orally 2 times Active Oral Tablet per day as needed. (for anxiety and sleep,mdd 2) 759197 Losartan Potassium 100 mg oral orally daily Active 100 MG Oral Tablet 993538 Nystatin 100 UNT/MG 1 applic topical topically 2 Active Topical Powder times per day Enterprise-3 Fatty Acids 1000 mg oral orally every day Active 7646 Omeprazole 20 mg oral orally daily Active 312827 Potassium Chloride 20 mEq oral orally 2 times Active 20 MEQ Extended per day Release Oral Tablet 263854 Rosuvastatin 5 mg oral orally daily Active calcium 5 MG Oral Tablet 693795 Warfarin Sodium 2.5 2.5 mg oral orally 3 times Active MG Oral Tablet per week (Sun, Tu, Wed, Thu, and Thu) 463514 Warfarin Sodium 5 5 mg oral orally 2 times Active MG Oral Tablet per week (Thu and ) Problems Code Code System Problem Name Start Date End Date Status 660214641 SNOMED-CT Acute posthemorrhagic anemia 10/2018 Active 551901703 SNOMED-CT Cerebrovascular accident 02/19/2014 U Active 36410186 SNOMED-CT Abdominal discomfort 06/06/2013 U Active 350377077 SNOMED-CT Cerebrovascular accident 10/21/2012 Active 70472082 SNOMED-CT Pulmonary embolism 2009 Active 361119799 SNOMED-CT Diverticulitis U Active 58486832 SNOMED-CT Chronic obstructive lung disease U Active 721923993 SNOMED-CT Asthma U Active 46508500 SNOMED-CT Pulmonary emphysema U Active 865085639 SNOMED-CT Backache U Active 31871508 SNOMED-CT Hypokalemia U U Active 93701397 SNOMED-CT Chronic obstructive lung disease U U Active 48552633 SNOMED-CT Pulmonary embolism U U Active 70017994 SNOMED-CT Hyperlipidemia U U Active 74605534 SNOMED-CT Hypertensive disorder U U Active 718882786 SNOMED-CT Gastroesophageal reflux disease U Active 14531017 SNOMED-CT Hiatal hernia U Active 82530697 SNOMED-CT Intervertebral disc prolapse U Active Procedures Code Code System Procedure Date 792052063 SNOMED CT Tonsillectomy U 288924127 SNOMED CT Hysterectomy 01/[address] Biopsy of breast U 50442964 SNOMED CT Cholecystectomy U 03275746 SNOMED CT Revision of total knee arthroplasty, all components 2009 Results Laboratory Results Order: AMYLASE Specimen Source: Body Site : Legend: (G,H) = High, (GG,HH,CH,#H) = Above High Threshold, (#,L) = Low, (##, CL,#L,LL) = Below Low Threshold, (C,CC,CA,#A,A) = Abnormal LOINC Test Result Flag Range Units Date 6 1Amylase Ur-cCnc 79 25-125 U/L 04/06/2019 08:38 Performing Lab Footnotes:[facility] - [id number] - [address] [place] [address] BRISEYDA BASHIRD1 Order: CBC DIFF Specimen Source: Body Site: Legend: (G,H) = High, (GG, HH,CH,#H) = Above High Threshold, (#,L) = Low, (##,CL,#L,LL) = Below Low Threshold, (C,CC,CA,#A,A) = Abnormal LOINC Test Result Flag Range Units Date 6690-2 1WBC # Bld Auto 7.1 4.8-10.8 K/uL 04/06/2019 08:38 00090-1 1RBC # Bld 4.52 4.20-5.40 M/uL 04/06/2019 08:38 718-7 1Hgb Bld-mCnc 12.7 12.0-16.0 gm/dL 04/06/2019 08:38 4544-3 1Hct VFr Bld Auto 40.6 36.0-48.0 % 04/06/2019 08:38 787-2 1MCV RBC Auto 89.7 80.0-100.0 fL 04/06/2019 08:38 91088-2 1MCHC RBC-mCnc 31.3 30.0-36.5 % 04/06/2019 08:38 66383-5 1MCH RBC Qn 28.0 27.0-34.0 pg 04/06/2019 08:38 50881-4 1RDW RBC 13.9 11.0-15.0 % 04/06/2019 08:38 777-3 1Platelet # Bld Auto 248 130-450 K/uL 04/06/2019 08:38 60919-0 1PMV Bld Auto 6.7 6.0-12.0 fL 04/06/2019 08:38 751-8 1Neutrophils # Bld Auto 71 37-80 % 04/06/2019 08:38 54190-7 1Lymphocytes NFr Bld 18 10-50 % 04/06/2019 08:38 5905-5 1Monocytes NFr Bld Auto 9 0-12 % 04/06/2019 08:38 35073-2 1Eosinophil # Bld 2 <=8 % 04/06/2019 08:38 704-7 1Basophils # Bld Auto 0 <=3 % 04/06/2019 08:38 32135-3 1Neutrophils # Bld 5.1 1.8-8.6 K/uL 04/06/2019 08:38 731-0 1Lymphocytes # Bld Auto 1.3 0.5-5.0 K/uL 04/06/2019 08:38 742-7 1Monocytes # Bld Auto 0.6 0.0-1.3 K/uL 04/06/2019 08:38 87336-6 1Eosinophil # Bld 0.1 0.0-0.9 K/uL 04/06/2019 08:38 704-7 1Basophils # Bld Auto 0.0 0.0-0.3 K/ul 04/06/2019 08:38 Performing Lab Footnotes:[facility] - [id number] - [address] [place] [address] BRISEYDA BASHIRD1 Order: COMPREHENSIVE PANEL Specimen Source: Body Site: Legend: (G,H) = High, (GG,HH,CH,#H) = Above High Threshold, (#,L) = Low, (##,CL,#L,LL) = Below Low Threshold, (C,CC,CA,#A,A) = Abnormal LOINC Test Result Flag Range Units Date 2951-2 1Sodium SerPl-sCnc 141 136-145 mmol/L 04/06/2019 08:38 2823-3 1Potassium SerPl-sCnc 3.9 3.5-5.2 mmol/L 04/06/2019 08:38 2075-0 1Chloride SerPl-sCnc 107 100-108 mmol/L 04/06/2019 08:38 8-9 1CO2 SerPl-sCnc 27 21-32 mmol/L 04/06/2019 08:38 2345-7 1Glucose SerPl-mCnc 98 70-100 mg/dL 04/06/2019 08:38 3094-0 1BUN SerPl-mCnc 14 7-21 mg/dL 04/06/2019 08:38 2160-0 1Creat SerPl-mCnc 0.9 0.6-1.3 mg/dL 04/06/2019 08:38 Interpretive Robyn: 1Normal Kidney Function or Mild Disease - GFR >OR= 60 Chronic Kidney Disease - GFR 15-59 Renal Failure - GFR < 15 GFR not calculated on patients under 18 years of age. Calculated (estimated) GFR is based on the MDRD Study equation, which assumes a steady state for creatinine. Estimated GFR may not be appropriate for medication dosing. 25606-9 1Ca-I SerPl-mCnc 9.4 8.5-10.8 mg/dL 04/06/2019 08:38 93234-1 1GFR/BSA.pred SerPl-ArVRat >60 04/06/2019 08:38 18803-3 1Bilirub Bld-mCnc 1.0 0.0-1.2 mg/dL 04/06/2019 08:38 2885-2 1Prot SerPl-mCnc 6.7 6.4-8.2 gm/dL 04/06/2019 08:38 1751-7 1Albumin SerPl-mCnc 3.6 3.2-4.6 gm/dL 04/06/2019 08:38 6768-6 1ALP SerPl-cCnc 84 40-150 U/L 04/06/2019 08:38 1742-6 1ALT SerPl-cCnc 17 0-55 U/L 04/06/2019 08:38 1920-8 1AST SerPl-cCnc 13 5-37 U/L 04/06/2019 08:38 Performing Lab Footnotes:[facility] - [id number] [place] [address] BRISEYDA [id number] Order: LIPASE Specimen Source: Body Site: Legend: (G,H) = High, (GG,HH, CH,#H) = Above High Threshold, (#,L) = Low, (##,CL,#L,LL) = Below Low Threshold , (C,CC,CA,#A,A) = Abnormal LOINC Test Result Flag Range Units Date 3040-3 1Lipase SerPl-cCnc 18 8-78 U/L 04/06/2019 08:38 Performing Lab Footnotes:[facility] - [id number] [place] [address] BRISEYDA SARGENTOMRola Order: PT/INR Specimen Source: Body Site: Legend: (G,H) = High, (GG,HH, CH,#H) = Above High Threshold, (#,L) = Low, (##,CL,#L,LL) = Below Low Threshold , (C,CC,CA,#A,A) = Abnormal LOINC Test Result Flag Range Units Date 5902-2 1PT Time PPP 30.0 H 9.4-12.4 sec 04/06/2019 08:38 6301-6 1INR PPP 2.7 04/06/2019 08:38 Interpretive Robyn: 1 INR INTERPERTATION 2.0-3.0 THERAPEUTIC MONITORING 2.5-3.5 HEART VALVE REPLACEMENT Performing Lab Footnotes:[facility] - [id number] - [address] [place] [address] BRISEYDA Holm [email or web address] Order: PTT Specimen Source: Body Site: Legend: (G,H) = High, (GG,HH,CH, #H) = Above High Threshold, (#,L) = Low, (##,CL,#L,LL) = Below Low Threshold, (C ,CC,CA,#A,A) = Abnormal LOINC Test Result Flag Range Units Date 3173-2 1aPTT Time Bld 40.0 H 25.6-36.4 sec 04/06/2019 08:38 Performing Lab Footnotes:[facility] - [id number] - [address] [place] [address] BRISEYDA Holm [id number] Radiology Results Order: CT-ABD PELVIS NO CONTRAST (DRY )Exam Completion Date:04/06/2019 08: 9:[address] ABDOMEN AND PELVIS WITHOUT CONTRAST CLINICAL INFORMATION: -- UNSPECIFIED RENAL COLIC lower abdominal pain, evaluate for stones COMPARISON: Contrast-enhanced exam from March 03, 2018 PROCEDURE: Contiguous images were obtained through the abdomen and pelvis withoutintravenous contrast. Automated exposure control , adjustment of the mA and/or kV according to patient size, and/or iterative reconstruction techniques were utilized for radiation dose optimization.FINDINGS : There is poor delineation of the soft tissues secondary to the patient's body habitus, motion, and the lack of IV contrast enhancement. Chest Base: There is pulmonary emphysema and a densely calcified pulmonary granuloma seen in the right middle lobe Liver/Biliary Tract: Status post cholecystectomy Pancreas: Unremarkable. Spleen: 1 cm dense calcification Adrenals: Unremarkable. Kidneys and Collecting Systems: Cortical renal scarring seen in the upper pole the right kidney. Bilateral cortical renal cysts. No hydronephrosis nor nephrolithiasis is seen Vessels: Atherosclerosis GI Tract/Mesentery and Peritoneal Cavity: There is some stranding seen in the fat of the mesentery involving the right side of the pelvis and lower abdomen. There are several less than 1 cm in size right lower quadrant lymph nodes. A small amount of ascites is seen in the pelvis. There is extensive colonic diverticulosis. No abscess formation or free air is seen. The appendix is visualized and is unremarkable. No small bowel dilatation is seen. Uterus/ Ovaries: Unremarkable. Bladder: Unremarkable. Soft Tissues/Musculoskeletal : There are numerous calcifications seen in the soft tissues of the pelvis. 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 There are numerous calcifications seen in the soft tissues of pelvis and if ureteral obstruction remains a clinical concern, a contrast enhanced exam is recommended. There is some stranding seen in the fat of the mesentery involving the right side of the pelvis and lower abdomen. There are several less than 1 cm in size right lower quadrant lymph nodes. A small amount of ascites is seen in the pelvis. There is extensive colonic diverticulosis. No abscess formation or free airis seen. The appendix is visualized and is unremarkable. No small bowel dilatation is seen. END OF IMPRESSION [facility] submits Radiology results to [facility] and [facility] then provides those same results to [facility]. All results are available to [facility] and [facility] provider portal users. [facility] DICOM images are available to the [facility] provider portal users only. [facility] DICOM images arenot available to the [facility] provider portal users. There is no current [facility] cross-IO functionality allowing images to be available through the [facility] to IO connectivity. Electronically signedBy : Mitchel Davey M.D. Read By: MITCHEL DAVEY Date: 04/06/2019 09:38 Social History Code Code System Social History Observation Description Dates Observed 499115283 SNOMED CT Current Smoking Status Never smoker UNK AdministrativeGender Sex Assigned At Unknown Vital Signs Code Code System Vitals Value Date 8310-5 LOINC Body Temperature 97.7 [degF] 04/06/2019 8865-8 LOINC Pulse Rate 63 {beats}/min 04/06/2019 9279-1 LOINC Respiratory Rate 15 /min 04/06/2019 71238-6 LOINC O2% BldC Oximetry 98 % 04/06/2019 8480-6 LOINC BP Systolic 135 mm[Hg] 04/06/2019 8462-4 LOINC BP Diastolic 74 mm[Hg] 04/06/2019 8302-2 LOINC Height 55 [in_i] 04/06/2019 22530-8 LOINC Weight 71.3 kg 04/06/2019 3140-1 LOINC Body surface area Derived from formula 1.58 m2 04/06/2019 68761-5 LOINC BMI (Body Mass Index) 36.9 kg/m2 04/06/2019 Goals Section No data in the system Health Concerns No data in the systemEncounter Diagnosis Date Code Code System Diagnosis Status R10.31 ICD10 RIGHT LOWER QUADRANT PAIN Active Advance Directives *[facility] - CONSENT IS YES Directive Type Effective Date Supervisor [employer] Notes Supporting Document Name Address Phone No Directive Type 12/16/2015 2:45:54 Not Specified Not Specified Not Specified None No specified [facility] Directive Type Effective Date Supervisor [employer] Notes Supporting Document Name Address Phone No Directive 11/01/2018 Not Not Not hanna Snell Yes Type 6:00:00 AM Specified Specified Specified [phone] specified Encounters Encounter Diagnosis Location Date RIGHT LOWER QUADRANT PAIN [facility] 04/06/2019 Family History Relationship: Father () Health Problem Age At Onset Notes NE (Myocardial infarction) (Myocardial infarction) Relationship: Mother ( ) Health Problem Age At Onset Notes NE (Myocardial infarction) (Myocardial infarction) Relationship: Sister ( ) Health Problem Age At Onset Notes Diverticulitis Functional Status Code Functional Condition Code System Date Status Independent adls SNOMED CT 04/06/2019 Active Appears well nourished/hydrated SNOMED CT 04/06/2019 Active Immunizations Vaccine Code Code System Vaccine Name Date Status 109 CVX pneumococcal vaccine, NOS 02/22/2008 Completed 109 CVX pneumococcal vaccine, NOS 05/16/2015 Completed 112 CVX tetanus toxoid, NOS 02/06/2004 Completed Medical Equipment Implants Implanted Date Implant Site [id number] 08/24/2009 total knee arthroplasty left knee Mental Status Code Cognitive Condition Code System Date Status Moves all extremities SNOMED CT 04/06/2019 Active Mild distress SNOMED CT 04/06/2019 [facility]35665624 [facility] Active 348140410 [facility] Active Assessment and Plan Assessments No data in the systemPlan Of Treatment No data in the systemPending Tests No data in the system Hospital Discharge Instructions No data in the system Reason for Visit Reason for Visit Flank Pain RIGHT
[2019-06-08 09:44] VITALS: BP 89/67
== END 2019-06-08 09:47 | disposition home or self-care (01) ==
LOC: ED 07:57
DX: J44.1 Chronic obstructive pulmonary disease with (acute) exacerbation (principal); E07.9 Disorder of thyroid, unspecified; I10 Essential (primary) hypertension; K21.9 Gastro-esophageal reflux disease without esophagitis; Z79.899 Other long term (current) drug therapy; Z88.1 Allergy status to other antibiotic agents; Z88.0 Allergy status to penicillin; Z88.2 Allergy status to sulfonamides; Z88.8 Allergy status to other drugs, medicaments and biological substances
CPT/HCPCS: 36415; 71046; 80053; 83880; 84484; 85025; 85610; 93005; 96374; 99283; J2930

== ENCOUNTER 2020-09-01 10:12 | Inpatient (IN) ==
[2020-09-01] MEDS ORDERED: Albuterol HFA INHALER 8 gm MDI INH ONE (10:38)
[2020-09-01 11:41] LABS: ABS Eosinophils 0.2 10^3/ul (0-0.6); ABS Lymphocytes 0.8 10^3/ul (1.0-4.8); ABS Monocytes 0.4 10^3/ul (0-0.8); ABS Neutrophils 8.4 10^3/ul (1.5-7.7); Eosinophil % 1.6 %; Hematocrit 38 % (35-47); Hemoglobin 12.6 g/dL (12.0-16.0); Lymphocyte % 8.4 %; Mean Corpuscular HGB Conc 33 g/dL (31-36); Mean Corpuscular Hemoglobin 29 pg (27-31); Mean Corpuscular Volume 88 fL (80-97); Platelet Count 420 10^3/uL (150-450); Red Blood Count 4.36 10^6 /uL (3.70-4.87); Red Cell Distribution Width 14 % (10-15); White Blood Count 9.8 10^3/uL (3.5-10.8)
[2020-09-01 11:55] LABS: Influenza A Molecular Negative (Negative); Influenza B Molecular Negative (Negative)
[2020-09-01 12:00] LABS: Albumin 3.2 g/dL (3.2-5.2); Albumin/Globulin Ratio 0.8 (1-3); BUN/Creatinine Ratio 13.6 (8-20); C Reactive Protein 23.33 mg/L (<8.01); Calcium 9.2 mg/dL (8.6-10.3); EGFR African American 81.5 (>60); EGFR Non-African American 67.4 (>60); Globulin 4.1 g/dL (2-4); Potassium 3.3 mmol/L (3.5-5.0); Total Bilirubin 0.4 mg/dL (0.2-1.0); Total Protein 7.3 g/dL (6.4-8.9)
[2020-09-01 12:01] LABS: Troponin I 0.01 ng/mL (<0.03)
[2020-09-01 12:16] LABS: Activated Partial Thrombo Time 38.5 seconds (26.0-38.0); INR 2.61 (0.82-1.09)
[2020-09-01 12:24] LABS: Ferritin 155.4 ng/mL (11-307)
[2020-09-01] MEDS ORDERED: cefTRIAXone 1 gm/50 mL NS BAG 1 GM/50 ML BAG IV ONE (14:51)
[2020-09-01] MEDS ORDERED: DOXYcycline 100 MG in NS 0.9% 250 ml 250 ML IVPB ONE (14:52)
[2020-09-01 15:02] LABS: Urine Appearance Cloudy; Urine Bilirubin Negative (Negative); Urine Blood 1+ (Negative); Urine Color Amber; Urine Glucose Negative (Negative); Urine Ketones Negative (Negative); Urine Nitrite Negative (Negative); Urine Protein 1+(30 mg/dL) (Negative); Urine Specific Gravity 1.023 (1.010-1.030); Urine Urobilinogen Negative (Negative)
[2020-09-01 15:19] LABS: Urine Bacteria 2+ (Absent); Urine Red Blood Cell 3+(>10/hpf) (Absent); Urine Squamous Epithelial Cell Present (Absent); Urine White Blood Cell 2+(11-20/hpf) (Absent)
[2020-09-01] MEDS: Aztreonam 1 GM in NS 0.9% 50 ML 50 ML IV SCH ×2 (17:12→23:32)
[2020-09-01] MEDS ORDERED: Acetylcysteine ORAL SOL 200 mg/ml 30 ml VIAL INH PRN (17:17)
[2020-09-01] MEDS ORDERED: ACETYLCYSTEINE INH PRN (17:28)
[2020-09-01] MEDS: Mometasone/Formoter 100/5 MDI INH SCH (19:44)
[2020-09-01] MEDS ORDERED: Acetylcysteine INHALATION SOL 200 MG/ML NEB.SOLN 10 ML INH PRN (20:23)
[2020-09-01] MEDS: Potassium Chlor 20 meq TAB.ER PO SCH (20:44)
[2020-09-01] MEDS: methylPREDNISolone SOD 40 mg/ml 1 ml VIAL IV SCH (20:45)
[2020-09-01] MEDS ORDERED: Albuterol HFA INHALER 8 gm MDI INH PRN (21:00)
[2020-09-02] MEDS: Aztreonam 1 GM in NS 0.9% 50 ML 50 ML IV SCH ×4 (00:20→23:40)
[2020-09-02] MEDS: Albuterol 2.5mg/3 ml (0.083%) NEB.SOLN INH PRN ×2 (01:14→19:36)
[2020-09-02] MEDS: methylPREDNISolone SOD 40 mg/ml 1 ml VIAL IV SCH ×2 (06:22→18:20)
[2020-09-02 08:25] LABS: ABS Lymphocytes 0.9 10^3/ul (1.0-4.8); ABS Monocytes 0.4 10^3/ul (0-0.8); ABS Neutrophils 7.8 10^3/ul (1.5-7.7); Eosinophil % 0.1 %; Hematocrit 35 % (35-47); Hemoglobin 11.7 g/dL (12.0-16.0); Lymphocyte % 9.8 %; Mean Corpuscular HGB Conc 34 g/dL (31-36); Mean Corpuscular Hemoglobin 30 pg (27-31); Mean Corpuscular Volume 87 fL (80-97); Mean Platelet Volume 7.2 fL (7.4-10.4); Platelet Count 456 10^3/uL (150-450); Red Blood Count 3.97 10^6 /uL (3.70-4.87); Red Cell Distribution Width 13 % (10-15); White Blood Count 9.1 10^3/uL (3.5-10.8)
[2020-09-02 08:33] LABS: BUN/Creatinine Ratio 21.1 (8-20); Calcium 9.2 mg/dL (8.6-10.3); EGFR African American 94.9 (>60); EGFR Non-African American 78.4 (>60); Potassium 4.7 mmol/L (3.5-5.0)
[2020-09-02] MEDS: Mometasone/Formoter 100/5 MDI INH SCH ×2 (08:37→19:36)
[2020-09-02] MEDS: Multivitamins/Minerals TAB PO SCH (09:50)
[2020-09-02] MEDS: Potassium Chlor 20 meq TAB.ER PO SCH ×2 (09:51→20:50)
[2020-09-02] MEDS: CMCS: Rosuvastatin 5 mg TAB (NF) PO SCH (09:51)
[2020-09-02] MEDS: Cholecalciferol (VIT D3) 1,000 unit TAB PO SCH (09:52)
[2020-09-03] MEDS: methylPREDNISolone SOD 40 mg/ml 1 ml VIAL IV SCH (05:26)
[2020-09-03 06:19] LABS: ABS Lymphocytes 1.1 10^3/ul (1.0-4.8); ABS Monocytes 0.6 10^3/ul (0-0.8); ABS Neutrophils 8.6 10^3/ul (1.5-7.7); Eosinophil % 0.1 %; Hematocrit 36 % (35-47); Hemoglobin 12.3 g/dL (12.0-16.0); Lymphocyte % 10.9 %; Mean Corpuscular HGB Conc 34 g/dL (31-36); Mean Corpuscular Hemoglobin 30 pg (27-31); Mean Corpuscular Volume 87 fL (80-97); Mean Platelet Volume 7.1 fL (7.4-10.4); Platelet Count 465 10^3/uL (150-450); Red Blood Count 4.16 10^6 /uL (3.70-4.87); Red Cell Distribution Width 14 % (10-15); White Blood Count 10.3 10^3/uL (3.5-10.8)
[2020-09-03 06:34] LABS: BUN/Creatinine Ratio 23.8 (8-20); Calcium 9.2 mg/dL (8.6-10.3); EGFR African American 78.2 (>60); EGFR Non-African American 64.6 (>60); Potassium 4.5 mmol/L (3.5-5.0)
[2020-09-03] MEDS: Aztreonam 1 GM in NS 0.9% 50 ML 50 ML IV SCH (08:56)
[2020-09-03] MEDS: Potassium Chlor 20 meq TAB.ER PO SCH (08:58)
[2020-09-03] MEDS: Cholecalciferol (VIT D3) 1,000 unit TAB PO SCH (08:58)
[2020-09-03] MEDS: Multivitamins/Minerals TAB PO SCH (08:59)
[2020-09-03] MEDS: CMCS: Rosuvastatin 5 mg TAB (NF) PO SCH (08:59)
[2020-09-03 10:15] LABS: INR 3.48 (0.82-1.09)
[2020-09-03] MEDS: Mometasone/Formoter 100/5 MDI INH SCH (11:03)
[2020-09-03 11:49] VITALS: BP 113/55
== END 2020-09-03 13:25 | disposition home health service (06) | DRG 190 ==
LOC: MED 10:12 → ED 10:12 → MED 18:14
PROVIDERS: ADMIT Internal Medicine; ATTEND Internal Medicine

== ENCOUNTER 2021-08-05 12:15 | Observation (INO) ==
[2021-08-05 13:22] LABS: ABS Eosinophils 0.1 10^3/ul (0-0.6); ABS Lymphocytes 1.2 10^3/ul (1.0-4.8); ABS Monocytes 0.7 10^3/ul (0-0.8); ABS Neutrophils 4.4 10^3/ul (1.5-7.7); Eosinophil % 2.1 %; Hematocrit 35 % (35-47); Hemoglobin 12.2 g/dL (12.0-16.0); Lymphocyte % 19.2 %; Mean Corpuscular HGB Conc 35 g/dL (31-36); Mean Corpuscular Hemoglobin 31 pg (27-31); Mean Corpuscular Volume 88 fL (80-97); Mean Platelet Volume 7.2 fL (7.4-10.4); Nucleated Red Blood Cells % 0.1; Platelet Count 249 10^3/uL (150-450); Red Cell Distribution Width 15 % (10-15); White Blood Count 6.5 10^3/uL (3.5-10.8)
[2021-08-05 13:39] LABS: Albumin 3.7 g/dL (3.2-5.2); Albumin/Globulin Ratio 1.1 (1-3); C Reactive Protein 3.69 mg/L (<8.01); Calcium 9.4 mg/dL (8.6-10.3); Globulin 3.3 g/dL (2-4); Magnesium 1.8 mg/dL (1.9-2.7); Total Bilirubin 0.9 mg/dL (0.2-1.0); eGFR CKD-EPI 66.2 (>60)
[2021-08-05 13:41] LABS: Troponin I 0.01 ng/mL (<0.03)
[2021-08-05] MEDS ORDERED: Iodixanol (CONTRAST) 320 MG/ML 100 ML SDV IV ONE (13:56)
[2021-08-05 14:01] LABS: Potassium 2.6 mmol/L (3.5-5.0)
[2021-08-05] MEDS ORDERED: Ondansetron 4 mg VIAL 2 MG/ML 2 ml VIAL IV ONE (14:22)
[2021-08-05] MEDS: KCL 10 MEQ/50 ML IVPREMIX 10 MEQ/50 ML BAG IV SCH ×4 (14:35→21:14)
[2021-08-05] MEDS ORDERED: Potassium Chlor 20 meq TAB.ER PO ONE (15:46)
[2021-08-05] MEDS ORDERED: Piperacillin/Tazobac ADVAN 3.375 GM in NS 0.9% 100 ml BAG 100 ML IV ONE (17:07)
[2021-08-05] MEDS ORDERED: Magnesium Sulf 4 GM/100 ML IV 4,000 MG/100 ML BAG IVPB ONE (18:08)
[2021-08-05] MEDS ORDERED: Warfarin per PHARMACY **NOTE FOLLOW UP SCH (19:00)
[2021-08-05 19:19] LABS: INR 2.34 (0.86-1.15)
[2021-08-06 05:09] LABS: ABS Eosinophils 0.1 10^3/ul (0-0.6); ABS Lymphocytes 1.5 10^3/ul (1.0-4.8); ABS Monocytes 0.8 10^3/ul (0-0.8); ABS Neutrophils 5.3 10^3/ul (1.5-7.7); Eosinophil % 1.8 %; Hematocrit 33 % (35-47); Hemoglobin 11.2 g/dL (12.0-16.0); Mean Corpuscular HGB Conc 34 g/dL (31-36); Mean Corpuscular Hemoglobin 30 pg (27-31); Mean Corpuscular Volume 89 fL (80-97); Mean Platelet Volume 7.1 fL (7.4-10.4); Platelet Count 229 10^3/uL (150-450); Red Cell Distribution Width 14 % (10-15); White Blood Count 7.7 10^3/uL (3.5-10.8)
[2021-08-06 05:14] LABS: INR 2.28 (0.86-1.15)
[2021-08-06 05:24] LABS: Calcium 8.7 mg/dL (8.6-10.3); Potassium 3.4 mmol/L (3.5-5.0); eGFR CKD-EPI 67.1 (>60)
[2021-08-06] MEDS ORDERED: Budesonide/Formote 80/4.5(NF) MDI INH SCH (07:00)
[2021-08-06] MEDS ORDERED: Multivitamins/Minerals TAB PO SCH (09:00)
[2021-08-06] MEDS ORDERED: Potassium Chlor 10 meq TAB PO SCH (11:00)
[2021-08-06] MEDS ORDERED: COVID-19 VACCINE, MRNA(PFIZER)/PF 30 MCG/0.3 ML IM ONE (13:30)
[2021-08-06 14:07] VITALS: BP 148/112
[2021-08-06] MEDS ORDERED: Warfarin DAILY REMINDER **NOTE FOLLOW UP SCH (17:00)
== END 2021-08-06 16:14 | disposition home or self-care (01) ==
LOC: ED 12:15 → EDHOLD 12:15 → MEDTELE 23:08
PROVIDERS: ADMIT Internal Medicine; ATTEND Internal Medicine

== ENCOUNTER 2021-12-16 12:57 | Inpatient (IN) ==
[2021-12-16] MEDS: NS 0.9% 1000 ml BAG 1,000 ML IV SCH (15:03)
[2021-12-16 15:08] LABS: ABS Basophils 0.1 10^3/ul (0-0.2); ABS Lymphocytes 1.3 10^3/ul (1.0-4.8); ABS Neutrophils 11.8 10^3/ul (1.5-7.7); Eosinophil % 0.1 %; Hematocrit 30 % (35-47); Hemoglobin 10.4 g/dL (12.0-16.0); Lymphocyte % 9.1 %; Mean Corpuscular HGB Conc 35 g/dL (31-36); Mean Corpuscular Hemoglobin 31 pg (27-31); Mean Corpuscular Volume 90 fL (80-97); Mean Platelet Volume 8.3 fL (7.4-10.4); Platelet Count 300 10^3/uL (150-450); Red Blood Count 3.36 10^6 /uL (3.70-4.87); Red Cell Distribution Width 14 % (10-15); White Blood Count 14.2 10^3/uL (3.5-10.8)
[2021-12-16 15:28] LABS: Activated Partial Thrombo Time 41.1 seconds (26.0-38.0); INR 4.7 (0.86-1.15)
[2021-12-16 15:32] LABS: ALT 10 U/L (7-52); Albumin 3.4 g/dL (3.2-5.2); Albumin/Globulin Ratio 1.1 (1-3); Alkaline Phosphatase 64 U/L (35-149); Blood Urea Nitrogen 19 mg/dL (6-24); CO2 Carbon Dioxide 34 mmol/L (22-32); Calcium 8.8 mg/dL (8.6-10.3); Chloride 100 mmol/L (101-111); Creatine Kinase 237 U/L (10-223); Glucose 123 mg/dL (70-100); Magnesium 1.9 mg/dL (1.9-2.7); Sodium 141 mmol/L (135-145); Total Protein 6.4 g/dL (6.4-8.9); eGFR CKD-EPI 45.4 (>60)
[2021-12-16 15:34] LABS: Anion Gap 7 mmol/L (2-11)
[2021-12-16 20:05] LABS: Potassium Redraw 3.3 mmol/L (3.5-5.0)
[2021-12-16 20:50] LABS: Urine Appearance Turbid; Urine Bilirubin Negative (Negative); Urine Blood 2+ (Negative); Urine Color Yellow; Urine Glucose Negative (Negative); Urine Ketones Negative (Negative); Urine Nitrite Negative (Negative); Urine Protein 2+(100 mg/dL) (Negative); Urine Urobilinogen Negative (Negative)
[2021-12-16 20:59] LABS: Urine Bacteria 1+ (Absent); Urine Red Blood Cell 3+(>10/hpf) (Absent); Urine White Blood Cell 3+(>20/hpf) (Absent)
[2021-12-16] MEDS ORDERED: ceFAZolin 1 GM ADVAN 1 GM in NS 0.9% 50 ML 50 ML IVPB ONE (21:59)
[2021-12-16] MEDS ORDERED: ceFAZolin VIAL 1 GM in NS 0.9% 50 ML 50 ML IVPB ONE (22:10)
[2021-12-16] MEDS ORDERED: Potassium Chlor 20 meq TAB.ER PO ONE (23:32)
[2021-12-16] MEDS ORDERED: Iodixanol (CONTRAST) 320 MG/ML 100 ML SDV IV ONE (23:40)
[2021-12-17 01:21] LABS: C Reactive Protein 56.52 mg/L (<8.01)
[2021-12-17] MEDS ORDERED: cefTRIAXone 1 gm/50 mL D5W 1 GM/50 ML BAG IV SCH (06:00)
[2021-12-17] MEDS ORDERED: Albuterol 2.5mg/3 ml (0.083%) NEB.SOLN INH PRN (06:17)
[2021-12-17] MEDS: NS 0.9% 1000 ml BAG 1,000 ML IV SCH ×2 (06:20→22:01)
[2021-12-17] MEDS: cefTRIAXone 1 GM Q24H (Pharmacy Admix) IVPB SCH (06:21)
[2021-12-17 07:40] LABS: ABS Eosinophils 0.1 10^3/ul (0-0.6); ABS Lymphocytes 1.7 10^3/ul (1.0-4.8); ABS Monocytes 1.3 10^3/ul (0-0.8); ABS Neutrophils 7.9 10^3/ul (1.5-7.7); Eosinophil % 0.8 %; Hematocrit 20 % (35-47); Hemoglobin 6.9 g/dL (12.0-16.0); Lymphocyte % 15.4 %; Mean Corpuscular HGB Conc 34 g/dL (31-36); Mean Corpuscular Hemoglobin 31 pg (27-31); Mean Corpuscular Volume 89 fL (80-97); Mean Platelet Volume 7.7 fL (7.4-10.4); Platelet Count 217 10^3/uL (150-450); Red Blood Count 2.26 10^6 /uL (3.70-4.87); Red Cell Distribution Width 14 % (10-15)
[2021-12-17 08:04] LABS: INR 6.63 (0.86-1.15)
[2021-12-17 08:20] LABS: Potassium 3.4 mmol/L (3.5-5.0); eGFR CKD-EPI 42.4 (>60)
[2021-12-17 08:45] LABS: C Reactive Protein 95.85 mg/L (<8.01)
[2021-12-17] MEDS: Cholecalciferol (VIT D3) 1,000 unit TAB PO SCH (09:12)
[2021-12-17] MEDS: Potassium Chlor 20 meq TAB.ER PO SCH (09:13)
[2021-12-17] MEDS: Multivitamins/Minerals TAB PO SCH (09:24)
[2021-12-17] MEDS ORDERED: Phytonadione Oral Solution 5 MG/25 ML UDC PO ONE ×2 (09:28→15:38)
[2021-12-17 14:28] LABS: INR 6.13 (0.86-1.15)
[2021-12-17 19:07] LABS: INR 5.1 (0.86-1.15)
[2021-12-18] MEDS: NS 0.9% 1000 ml BAG 1,000 ML IV SCH (04:40)
[2021-12-18] MEDS: cefTRIAXone 1 GM Q24H (Pharmacy Admix) IVPB SCH (05:32)
[2021-12-18] MEDS ORDERED: Benzocaine/Menthol LOZ PO PRN (06:21)
[2021-12-18 06:55] LABS: ABS Eosinophils 0.1 10^3/ul (0-0.6); ABS Lymphocytes 1.4 10^3/ul (1.0-4.8); ABS Neutrophils 5.4 10^3/ul (1.5-7.7); ABS Nucleated RBC 0.1 10^3/ul; Eosinophil % 1.8 %; Hematocrit 17 % (35-47); Hemoglobin 5.6 g/dL (12.0-16.0); Lymphocyte % 17.8 %; Mean Corpuscular HGB Conc 34 g/dL (31-36); Mean Corpuscular Hemoglobin 31 pg (27-31); Mean Corpuscular Volume 90 fL (80-97); Mean Platelet Volume 7.8 fL (7.4-10.4); Nucleated Red Blood Cells % 1.3; Platelet Count 188 10^3/uL (150-450); Red Blood Count 1.83 10^6 /uL (3.70-4.87); Red Cell Distribution Width 14 % (10-15); White Blood Count 7.9 10^3/uL (3.5-10.8)
[2021-12-18 07:18] LABS: C Reactive Protein 98.23 mg/L (<8.01); Calcium 7.4 mg/dL (8.6-10.3); Potassium 3.1 mmol/L (3.5-5.0)
[2021-12-18] MEDS ORDERED: Phytonadione IV (Adult) 5 MG in NS 0.9% 50 ML 50 ML IV ONE (08:30)
[2021-12-18] MEDS ORDERED: Potassium Chlor 10 meq TAB PO ONE ×2 (08:58→12:00)
[2021-12-18 09:26] LABS: INR 1.59 (0.86-1.15)
[2021-12-18] MEDS: Cholecalciferol (VIT D3) 1,000 unit TAB PO SCH (10:10)
[2021-12-18] MEDS: Potassium Chlor 20 meq TAB.ER PO SCH ×2 (10:15→10:27)
[2021-12-18] MEDS: Multivitamins/Minerals TAB PO SCH (10:18)
[2021-12-18] MEDS ORDERED: Warfarin per PHARMACY **NOTE FOLLOW UP SCH (13:00)
[2021-12-18 18:21] LABS: Hematocrit 29 % (35-47); Hemoglobin 9.8 g/dL (12.0-16.0)
[2021-12-18 18:31] LABS: INR 1.07 (0.86-1.15)
[2021-12-18 19:19] LABS: Calcium 7.7 mg/dL (8.6-10.3); Potassium 3.3 mmol/L (3.5-5.0); eGFR CKD-EPI 69.6 (>60)
[2021-12-18 19:41] LABS: Magnesium 1.5 mg/dL (1.9-2.7)
[2021-12-18] MEDS ORDERED: Magnesium Sulf 4 GM/100 ML IV 4,000 MG/100 ML BAG IVPB ONE (19:45)
[2021-12-18] MEDS: KCL 10 MEQ/50 ML IVPREMIX 10 MEQ/50 ML BAG IV SCH ×2 (21:32→23:33)
[2021-12-19] MEDS: KCL 10 MEQ/50 ML IVPREMIX 10 MEQ/50 ML BAG IV SCH (02:07)
[2021-12-19] MEDS: cefTRIAXone 1 GM Q24H (Pharmacy Admix) IVPB SCH (05:25)
[2021-12-19 06:05] LABS: ABS Eosinophils 0.2 10^3/ul (0-0.6); ABS Lymphocytes 1.7 10^3/ul (1.0-4.8); ABS Monocytes 0.9 10^3/ul (0-0.8); ABS Neutrophils 4.9 10^3/ul (1.5-7.7); Eosinophil % 2.1 %; Hematocrit 25 % (35-47); Hemoglobin 8.8 g/dL (12.0-16.0); Lymphocyte % 22.1 %; Mean Corpuscular HGB Conc 36 g/dL (31-36); Mean Corpuscular Hemoglobin 31 pg (27-31); Mean Corpuscular Volume 86 fL (80-97); Mean Platelet Volume 7.5 fL (7.4-10.4); Nucleated Red Blood Cells % 0.1; Platelet Count 191 10^3/uL (150-450); Red Blood Count 2.86 10^6 /uL (3.70-4.87); Red Cell Distribution Width 14 % (10-15); White Blood Count 7.7 10^3/uL (3.5-10.8)
[2021-12-19 06:48] LABS: C Reactive Protein 92.26 mg/L (<8.01); Calcium 7.7 mg/dL (8.6-10.3); Magnesium 2.5 mg/dL (1.9-2.7); Potassium 3.9 mmol/L (3.5-5.0); eGFR CKD-EPI 77.5 (>60)
[2021-12-19] MEDS ORDERED: Iodixanol (CONTRAST) 320 MG/ML 100 ML SDV IV ONE (09:13)
[2021-12-19] MEDS: Potassium Chlor 20 meq TAB.ER PO SCH (09:39)
[2021-12-19] MEDS: Multivitamins/Minerals TAB PO SCH (09:39)
[2021-12-19] MEDS: Cholecalciferol (VIT D3) 1,000 unit TAB PO SCH (09:39)
[2021-12-19] MEDS ORDERED: Furosemide 40 mg/4 ml IV VIAL IV ONE (10:57)
[2021-12-19 14:17] LABS: Hematocrit 29 % (35-47); Hemoglobin 10.1 g/dL (12.0-16.0); Mean Platelet Volume 7.5 fL (7.4-10.4); Platelet Count 250 10^3/uL (150-450)
[2021-12-19] MEDS ORDERED: Enoxaparin 40 MG/0.4 ML SYR SUBCUT SCH (16:00)
[2021-12-19] MEDS: Warfarin DAILY REMINDER **NOTE FOLLOW UP SCH (17:14)
[2021-12-19] MEDS: Enoxaparin 60 MG/0.6 ML SYR SUBCUT SCH (17:14)
[2021-12-19] MEDS: Mometasone/Formoter 100/5 MDI INH SCH (19:17)
[2021-12-20] MEDS: cefTRIAXone 1 gm/50 mL D5W 1 GM/50 ML BAG IV SCH (05:20)
[2021-12-20] MEDS: Enoxaparin 60 MG/0.6 ML SYR SUBCUT SCH ×2 (05:20→16:43)
[2021-12-20 05:46] LABS: ABS Eosinophils 0.2 10^3/ul (0-0.6); ABS Lymphocytes 1.7 10^3/ul (1.0-4.8); ABS Monocytes 0.7 10^3/ul (0-0.8); ABS Neutrophils 4.6 10^3/ul (1.5-7.7); Eosinophil % 3.1 %; Hematocrit 27 % (35-47); Lymphocyte % 23.9 %; Mean Corpuscular HGB Conc 34 g/dL (31-36); Mean Corpuscular Hemoglobin 30 pg (27-31); Mean Corpuscular Volume 88 fL (80-97); Mean Platelet Volume 7.4 fL (7.4-10.4); Nucleated Red Blood Cells % 0.1; Platelet Count 246 10^3/uL (150-450); Red Blood Count 3.05 10^6 /uL (3.70-4.87); Red Cell Distribution Width 14 % (10-15); White Blood Count 7.3 10^3/uL (3.5-10.8)
[2021-12-20 06:19] LABS: Calcium 7.9 mg/dL (8.6-10.3); Magnesium 1.8 mg/dL (1.9-2.7); Potassium 3.6 mmol/L (3.5-5.0); eGFR CKD-EPI 84.5 (>60)
[2021-12-20] MEDS ORDERED: Magnesium Sulfate 2 gm BAG 2 GM/50 ML BAG IVPB ONE (07:05)
[2021-12-20] MEDS: Mometasone/Formoter 100/5 MDI INH SCH ×2 (08:29→20:31)
[2021-12-20] MEDS: Potassium Chlor 20 meq TAB.ER PO SCH (09:12)
[2021-12-20] MEDS: Cholecalciferol (VIT D3) 1,000 unit TAB PO SCH (09:13)
[2021-12-20] MEDS: Multivitamins/Minerals TAB PO SCH (09:13)
[2021-12-20 14:36] LABS: Hematocrit 27 % (35-47); Hemoglobin 9.6 g/dL (12.0-16.0); Platelet Count 279 10^3/uL (150-450)
[2021-12-20] MEDS: Warfarin DAILY REMINDER **NOTE FOLLOW UP SCH (16:43)
[2021-12-20] MEDS: Albuterol HFA INHALER 8 gm MDI INH PRN (23:23)
[2021-12-21] MEDS: Enoxaparin 60 MG/0.6 ML SYR SUBCUT SCH ×2 (05:34→16:41)
[2021-12-21] MEDS: cefTRIAXone 1 gm/50 mL D5W 1 GM/50 ML BAG IV SCH (05:35)
[2021-12-21 06:15] LABS: Hematocrit 28 % (35-47); Hemoglobin 9.6 g/dL (12.0-16.0); Mean Corpuscular HGB Conc 35 g/dL (31-36); Mean Corpuscular Hemoglobin 31 pg (27-31); Mean Corpuscular Volume 89 fL (80-97); Mean Platelet Volume 7.2 fL (7.4-10.4); Platelet Count 299 10^3/uL (150-450); Red Cell Distribution Width 14 % (10-15); White Blood Count 8.4 10^3/uL (3.5-10.8)
[2021-12-21 06:22] LABS: INR 1.6 (0.86-1.15)
[2021-12-21 06:56] LABS: Potassium 3.4 mmol/L (3.5-5.0); eGFR CKD-EPI 84.2 (>60)
[2021-12-21] MEDS: Mometasone/Formoter 100/5 MDI INH SCH ×2 (07:48→20:55)
[2021-12-21] MEDS: Albuterol HFA INHALER 8 gm MDI INH PRN (07:52)
[2021-12-21] MEDS: Multivitamins/Minerals TAB PO SCH (08:15)
[2021-12-21] MEDS: Cholecalciferol (VIT D3) 1,000 unit TAB PO SCH (08:16)
[2021-12-21] MEDS: Potassium Chlor 20 meq TAB.ER PO SCH (08:16)
[2021-12-21] MEDS ORDERED: Potassium Chlor 20 meq TAB.ER PO ONE (12:00)
[2021-12-21] MEDS: Warfarin DAILY REMINDER **NOTE FOLLOW UP SCH (16:38)
[2021-12-21 18:34] LABS: Hematocrit 27 % (35-47); Hemoglobin 9.5 g/dL (12.0-16.0)
[2021-12-22] MEDS: Enoxaparin 60 MG/0.6 ML SYR SUBCUT SCH ×2 (05:38→16:20)
[2021-12-22] MEDS: cefTRIAXone 1 gm/50 mL D5W 1 GM/50 ML BAG IV SCH (05:39)
[2021-12-22 06:08] LABS: Hematocrit 26 % (35-47); Hemoglobin 8.8 g/dL (12.0-16.0); Mean Corpuscular HGB Conc 34 g/dL (31-36); Mean Corpuscular Hemoglobin 30 pg (27-31); Mean Corpuscular Volume 89 fL (80-97); Mean Platelet Volume 7.1 fL (7.4-10.4); Platelet Count 303 10^3/uL (150-450); Red Blood Count 2.93 10^6 /uL (3.70-4.87); Red Cell Distribution Width 14 % (10-15); White Blood Count 6.1 10^3/uL (3.5-10.8)
[2021-12-22 06:19] LABS: INR 1.71 (0.86-1.15)
[2021-12-22 06:23] LABS: Calcium 8.1 mg/dL (8.6-10.3); Magnesium 1.8 mg/dL (1.9-2.7); eGFR CKD-EPI 84.8 (>60)
[2021-12-22] MEDS: Mometasone/Formoter 100/5 MDI INH SCH ×2 (07:48→21:32)
[2021-12-22] MEDS: Albuterol HFA INHALER 8 gm MDI INH PRN (07:51)
[2021-12-22] MEDS: Potassium Chlor 20 meq TAB.ER PO SCH (09:59)
[2021-12-22] MEDS: Cholecalciferol (VIT D3) 1,000 unit TAB PO SCH (10:02)
[2021-12-22] MEDS: Multivitamins/Minerals TAB PO SCH (10:18)
[2021-12-22] MEDS: Warfarin DAILY REMINDER **NOTE FOLLOW UP SCH (16:20)
[2021-12-23 05:13] LABS: Hematocrit 26 % (35-47); Hemoglobin 8.8 g/dL (12.0-16.0); Mean Platelet Volume 6.7 fL (7.4-10.4); Platelet Count 326 10^3/uL (150-450)
[2021-12-23] MEDS: Enoxaparin 60 MG/0.6 ML SYR SUBCUT SCH (05:17)
[2021-12-23 05:19] LABS: INR 1.84 (0.86-1.15)
[2021-12-23] MEDS: Mometasone/Formoter 100/5 MDI INH SCH (07:00)
[2021-12-23] MEDS: Albuterol HFA INHALER 8 gm MDI INH PRN (07:01)
[2021-12-23] MEDS ORDERED: Potassium Chloride LIQUID 20 MEQ/15 ML LIQUID PO SCH (09:00)
[2021-12-23] MEDS: Cholecalciferol (VIT D3) 1,000 unit TAB PO SCH (09:47)
[2021-12-23] MEDS: Multivitamins/Minerals TAB PO SCH (09:49)
[2021-12-23 12:14] VITALS: BP 134/67
== END 2021-12-23 12:40 | DRG 690 ==
LOC: EDHOLD 12:57 → ED 12:57 → SUATTDRO 22:55 → MED 12-17 00:57 → SUATTDRO 12-17 16:11 → MED 12-18 12:14
PROVIDERS: ADMIT Internal Medicine; ATTEND Internal Medicine